=== PATIENT | female | born 1965 | race Caucasian/White ===

== ENCOUNTER 2019-04-30 00:43 | Day surgery (SDC) | payer OTHER, SELFPAY ==
[2019-04-19 15:06] VITALS: BMI 26.9
[2019-04-30 07:34] VITALS: BP 113/75; PULSE 81; RESP 20; TEMP 36.2; O2SAT 98
--- NOTE | 2019-04-30 07:38 | WPDANESEPPF ---
Anes - Initial Pre Proc Eval Procedure: Operation Date: 04/30/19 09:00 Proposed Procedures p Bradford Joe Bunionectomy Left Foot - Latrell Craig DPM Date/Time: 04/30/19 07:38 Surgeon: Latrell Craig DPM Pre Op Diagnosis: Hallux Rigidus Left Foot Patient Data Age: 53 Gender: F Height: 5 ft 4 in Weight: 71.21 kg Allergies Allergy/AdvReac Type Severity Reaction Status Date / Time sulfamethizole Allergy Unknown Rash Verified 04/19/19 15:07 trimethoprim Allergy Unknown Rash Verified 04/19/19 15:07 Home Medications Medication Instructions Recorded Confirmed Type L.acid-L.casei-B.bif-B.lyric-FOS 1 cap PO DAILY 04/19/19 04/19/19 History [Probiotic Blend] Curtis Burn 1 tablet PO DAILY 04/19/19 History biotin 1,000 mcg PO DAILY 04/19/19 04/19/19 History multivitamin 1 tablet PO DAILY 04/19/19 04/19/19 History Patient hx anesthesia problems: post op nausea/vomiting Family hx anesthesia problems: none PMFSH Past Medical History Medical History Arthritis Family History Family History Other Diabetes mellitus Family history of arthritis Family history of malignant neoplasm Hypertension Social History Social History Smoking status: Never smoker Anes - Eval Final PreProcedure Day of Procedure 04/30/19 07:38 Patient weight: overweight Heart: regular rate and rhythm Lungs: clear to auscultation Airway: Mallampati scale class II Neurological: alert and oriented Last oral intake: >/= 8 hours ASA classification: II Emergent: no Anesthetic plan: proceed Anesthesia type and monitoring: general LMA and standard monitoring Informed Consent: The patient's anesthetic plan and its attendant risks and benefits were discussed with the patient/family/POA. Questions were solicited and answers provided to the satisfaction of the patient/family/POA.
[2019-04-30] MEDS: LACTATED RINGERS 1,000 ML 30 ML IV CONT (08:10)
--- NOTE | 2019-04-30 09:00 | PM.IMHP ---
H&P: HPI History of Present Illness Chief complaint: Hallux Rigidus Left Foot Narrative: Shelbie Contreras is a 53 year old female presenting with pain in the left great toe that is unresponsive to conservative care PMFSH Past Medical History Medical History Arthritis Family History Family History Other Diabetes mellitus Family history of arthritis Family history of malignant neoplasm Hypertension Social History Social History Smoking status: Never smoker Meds Home Medications and Allergies Home Medications Medication Instructions Recorded Confirmed Type L.acid-L.casei-B.bif-B.lyric-FOS 1 cap PO DAILY 04/19/19 04/30/19 History [Probiotic Blend] Curtis Burn 1 tablet PO DAILY 04/19/19 04/30/19 History biotin 1,000 mcg PO DAILY 04/19/19 04/30/19 History multivitamin 1 tablet PO DAILY 04/19/19 04/30/19 History Allergies Allergy/AdvReac Type Severity Reaction Status Date / Time sulfamethizole Allergy Unknown Rash Verified 04/30/19 08:56 trimethoprim Allergy Unknown Rash Verified 04/30/19 08:56 Assessment and Plan Assessment and plan (1) Hallux limitus of left foot: Code(s): M20.5X2 - Other deformities of toe(s) (acquired), left foot Status: Acute Assessment and Plan: Bradford bunionectomy with 1st MPJ implant left foot
[2019-04-30] MEDS: SCOPOLAMINE 1.5 MG PATCH TRANSDERM (09:05)
[2019-04-30] MEDS: ceFAZolin 2 GM/D5W 50 ML 2 GM/50 ML BAG IVPB (09:18)
--- NOTE | 2019-04-30 10:09 | PM.OP ---
Procedure Note - Brief Procedure Note - Brief Date of procedure: 04/30/19 Pre-op diagnosis: Hallux Rigidus Left Foot Post-op diagnosis: same Anesthesia: MAC Surgeon: Latrell Craig DPM Spanish Interpreter: None Estimated blood loss (mL): 5 Drains: No Packing: No Pathology: none sent Complications: No immediate complications Condition: stable Disposition: PACU
--- NOTE | 2019-04-30 10:09 | PM.PROC ---
Procedure Note - Detailed Date of procedure: 04/30/19 Pre-op diagnosis: Hallux Rigidus Left Foot Post-op diagnosis: same Implants: Futura Primus great toe implant Anesthesia: MAC Surgeon: Latrell Craig DPM Loss Prevention Manager: None Estimated blood loss (mL): 1 Drains: No Packing: No Pathology: none sent Complications: No immediate complications Condition: stable Disposition: PACU Findings: Under monitored sedation patient was brought into the operating room, placed on the operating table in a supine position. Following IV sedation local anesthesia was obtained using 2% Lidocaine plain and 0.5% Marcaine plain. The foot was then scrubbed, prepped and draped in the usual aseptic manner. Esmark bandage used to exsanguinate the patient?s leflt foot and the ankle tourniquet was inflated to 250mm. Attention was then directed to the 1st digit where a linear incision made dorsal to the dorsal aspect of the toe. It was deepened down to the level of the MPJ. The incision was deepened down to the level of the 1st MPJ. The head of the metatarsal and the base of the proximal phalanx was resected. The appropriate sized implant was found and put in place using the instrumentation provided by the company. It was noted to sit in a good position. At this point, the toe was evaluated and noted to be straight position. The wound was flushed with copious amounts of sterile saline. The wound was closed with 3-0 vicryl and the skin was repaired using 5-0 vicryl. Patient tolerated procedure and anesthesia well. She was transferred to the recovery room with vital signs stable and neurovascular status intact to all digits of the left foot. Following a period of post-operative monitoring the patient will be discharged home with written and oral post-operative instructions.
[2019-04-30 10:11] VITALS: BP 97/64; PULSE 77; RESP 16
[2019-04-30 10:31] VITALS: BP 115/66; PULSE 72; RESP 14
[2019-04-30] MEDS: ONDANSETRON INJ 4 MG/2 ML VIAL IV PUSH (10:52)
[2019-04-30 11:01] VITALS: BP 109/67; PULSE 70; RESP 14
== END 2019-04-30 11:10 | disposition home or self-care (01) ==
PROVIDERS: PCP Internal Medicine; Visit Provider Podiatrist Foot & Ankle Surgery
PROC: (CPT 28299; principal; 2019-04-30 09:00)
DX: M20.22 Hallux rigidus, left foot (principal); M19.90 Unspecified osteoarthritis, unspecified site
CPT/HCPCS: 28291; A9270; C1776; J0690; J1100; J2250; J2405; J2704; J3010; J7120

== ENCOUNTER 2019-06-16 01:49 | Day surgery (SDC) | payer BC, SELFPAY ==
[2019-06-15 10:10] VITALS: BMI 27.1
[2019-06-16 08:55] VITALS: BP 113/78; PULSE 85; RESP 16; TEMP 37.2; O2SAT 98; BMI 27.3
[2019-06-16] MEDS: LACTATED RINGERS 1,000 ML 150 ML IV CONT (09:16)
--- NOTE | 2019-06-16 09:35 | WPDGICN ---
Assessment and Plan Additional Plan This is a 53-year-old white female patient seen in evaluation at the request of Dr. Paulson. Patient complains of food catching in the mid chest on swallowing. This happens more with solids compared to liquids. It occurs intermittently. Symptoms have been present for at least 1 year. She denies any associated heartburn. She denies bleeding. She denies weight loss. Past medical history noncontributory. Current medications include vitamins and probiotics per family history is noncontributory. physical exam reveals her to be alert. Vital signs stable. HEENT exam unremarkable. Lungs are clear to auscultation and percussion. Heart is without murmur or extra sounds. Abdominal exam bowel sounds are present soft nontender with no hepatosplenomegaly. Digital external rectal Exam is deferred. Impression 1. Dysphagia, suspicious for esophageal narrowing. Plan is for EGD to assess evaluate more thoroughly. GI Consult Note Consult date/time: 06/16/19 09:35 HPI: Shelbie Contreras is a 53 year old female [facility] Social History Social History Smoking status: Never smoker Meds Home Medications and Allergies Home Medications Medication Instructions Recorded Confirmed Type L.acid-L.casei-B.bif-B.lyric-FOS 1 cap PO DAILY 04/19/19 06/15/19 History [Probiotic Blend] biotin 1,000 mcg PO DAILY 04/19/19 06/15/19 History multivitamin 1 tablet PO DAILY 04/19/19 06/15/19 History Allergies Allergy/AdvReac Type Severity Reaction Status Date / Time sulfamethizole Allergy Unknown Rash Verified 06/16/19 08:54 trimethoprim Allergy Unknown Rash Verified 06/16/19 08:54 Vital Signs Vital Signs - 24 hr 06/16/19 08:55 Temperature 37.2 C Pulse Rate 85 Respiratory Rate 16 Blood Pressure 113/78 Pulse Oximetry 98
--- NOTE | 2019-06-16 09:44 | WPDANESEPPF ---
Anes - Initial Pre Proc Eval Procedure: Operation Date: 06/16/19 10:00 Proposed Procedures p Esophagogastroduodenoscopy - Mike Cedeño MD Date/Time: 06/16/19 09:44 Surgeon: Mike Cedeño MD Pre Op Diagnosis: dysphagia Patient Data Age: 53 Gender: F Height: 5 ft 5 in Weight: 74.5 kg Last Vital Signs Temp 98.9 F 06/16/19 08:55 Pulse 85 06/16/19 08:55 Resp 16 06/16/19 08:55 BP 113/78 06/16/19 08:55 Pulse Ox 98 06/16/19 08:55 Allergies Allergy/AdvReac Type Severity Reaction Status Date / Time sulfamethizole Allergy Unknown Rash Verified 06/16/19 08:54 trimethoprim Allergy Unknown Rash Verified 06/16/19 08:54 Home Medications Medication Instructions Recorded Confirmed Type L.acid-L.casei-B.bif-B.lyric-FOS 1 cap PO DAILY 04/19/19 06/15/19 History [Probiotic Blend] biotin 1,000 mcg PO DAILY 04/19/19 06/15/19 History multivitamin 1 tablet PO DAILY 04/19/19 06/15/19 History Patient hx anesthesia problems: none Family hx anesthesia problems: none PMFSH Social History Social History Smoking status: Never smoker Anes - Eval Final PreProcedure Day of Procedure 06/16/19 09:44 Patient weight: normal Heart: regular rate and rhythm Lungs: clear to auscultation Airway: Mallampati scale class II Neurological: alert and oriented Last oral intake: >/= 8 hours ASA classification: II Emergent: no Anesthetic plan: proceed Anesthesia type and monitoring: general GIVS and standard monitoring Informed Consent: The patient's anesthetic plan and its attendant risks and benefits were discussed with the patient/family/POA. Questions were solicited and answers provided to the satisfaction of the patient/family/POA.
[2019-06-16] MEDS: BENZOCAINE (*SP) 60 ML SPRAY CAN (HURRICAINE) 1 SPRAY MUCOUS MEM (10:05)
[2019-06-16 10:25] VITALS: BP 106/71; PULSE 67; RESP 14; O2SAT 98
[2019-06-16 10:35] VITALS: BP 113/75; PULSE 66; RESP 14; O2SAT 99
== END 2019-06-16 11:00 | disposition home or self-care (01) ==
PROVIDERS: PCP Internal Medicine; Visit Provider Internal Medicine Gastroenterology
PROC: 0DJ08ZZ Inspection of Upper Intestinal Tract, Via Natural or Artificial Opening Endoscopic (ICD-10-PCS; CPT 43235; principal; 2019-06-16 10:00)
DX: R13.10 Dysphagia, unspecified (principal)
CPT/HCPCS: 43235; 43450; J2704; J7120

== ENCOUNTER 2019-08-25 12:58 | Outpatient (CLI) | payer BC, SELFPAY ==
--- NOTE | ~2019-08-25 | XR_ITS ---
EXAMINATION: XR lg joint inject/asp w image DATE: 08/25/2019 13:42 INDICATION: Frozen left shoulder. Left shoulder pain. TECHNIQUE: A time-out was performed to verify the patient's name, date of , and procedure to b e performed. The procedure including the risks, benefits, and alternatives was discussed with the pat ient. Risks discussed included bleeding and infection. The patient understood the risks and agreed to proceed. The skin overlying the left glenohumeral joint was prepped and draped in usual sterile fas hion. Anesthetic was administered with 1% lidocaine subcutaneously. A 22 G needle was advanced unde r fluoroscopic guidance into the joint. Injection of 1 mL of Omnipaque 240 confirmed intra-articular position of the needle. Subsequently, injectate consisting of 4 mL 1% lidocaine and 1 mL 80 mg/mL D epo-Medrol was instilled. The needle was removed and the entry site was cleaned and dressed. There were no immediate complications. Fluoroscopy exposure time was 0.1 minutes. The total number of image s was 2. FINDINGS: Real-time fluoroscopy demonstrates the needle in the left glenohumeral joint. Patient's julio n prior to procedure:1/10. Patient's pain following the procedure: 0/10. IMPRESSION: 1. Left glenohumeral joint injection of local anesthetic and steroid with decrease in the patient's p resenting pain. Reviewed, dictated and finalized at location A. IMPRESSION: 1. Left glenohumeral joint injection of local anesthetic and steroid with decre ase in the patient's presenting pain.
== END 2019-08-25 12:59 | disposition home or self-care (01) ==
PROVIDERS: PCP Internal Medicine; Visit Provider Orthopaedic Surgery
DX: M75.02 Adhesive capsulitis of left shoulder (principal)
CPT/HCPCS: 20610; 77002; J1040; Q9966

== ENCOUNTER 2020-05-24 14:12 | Outpatient (CLI) | payer BC, SELFPAY ==
--- NOTE | ~2020-05-24 | MM_ITS ---
EXAMINATION: MM screening [facility] BI w michael HISTORY: Screening mammogram TECHNIQUE: Craniocaudal and mediolateral oblique 3-D tomosynthesis images were obtained and synthetic 2-D images were generated. CAD analysis was submitted and interpreted. COMPARISON: 11/12/2017, 08/16/2015, 02/08/2014 BREAST PARENCHYMAL COMPOSITION: There are scattered areas of fibroglandular density. FINDINGS: RIGHT BREAST: There is no evidence of suspicious mass, calcification, or architectural distortion to suggest malignancy. There has been no significant interval change. LEFT BREAST: There is a possible mass in the posterior third of the upper inner breast. IMPRESSION: 1. Possible left breast mass. 2. Additional mammographic views and possible breast ultrasound are recommended. BI-RADS Category 0: Incomplete: Needs additional imaging evaluation. Reviewed, dictated and finalized at location A. NING AND DEVELOPMENT MANAGER IMPRESSION: 1. Possible left breast mass. 2. Additional mammographic views and possible breast ultrasound are recommended . BI-RADS Category 0: Incomplete: Needs additional imaging evaluation.
== END 2020-05-24 14:13 | disposition home or self-care (01) ==
LOC: ANHIMG 14:14
PROVIDERS: PCP Internal Medicine; Visit Provider Nurse Practitioner Women's Health
DX: Z12.31 Encounter for screening mammogram for malignant neoplasm of breast (principal); R92.8 Other abnormal and inconclusive findings on diagnostic imaging of breast
CPT/HCPCS: 77063; 77067

== ENCOUNTER → 2020-06-01 07:48 | Outpatient (CLI) | payer BC, SELFPAY ==
--- NOTE | ~2020-06-01 | MMUS_ITS ---
EXAMINATION: MM diagnostic mammo unilat LT, US breast LT complete HISTORY: Follow-up left breast mass TECHNIQUE: Additional 3-D tomosynthesis images of the left breast were performed and synthetic 2-D im ages were generated. CAD analysis was submitted and interpreted. High resolution complete left breast ultrasound was performed. COMPARISON: Comparison to multiple prior studies sequentially, with oldest reviewed study dated 05/15. BREAST PARENCHYMAL COMPOSITION: Breast composed of scattered areas of fibroglandular density. FINDINGS: MAMMOGRAPHIC FINDINGS: There is a mass in the upper central aspect of the left breast posteriorly measuring approximately 7 mm. There are no suspicious calcifications or architectural distortion. ULTRASOUND: Complete left breast ultrasound: At 11:00, 5 cm from the nipple, there is a 9 x 6 x 3 mm cyst corresp onding to the mammographic finding. No suspicious masses are identified. IMPRESSION: 1. No evidence for malignancy in the left breast. Benign findings. 2. Routine yearly screening mammogram and regular clinical breast examination are recommended. BI-RADS Category 2: Benign finding(s). Reviewed, dictated and finalized at location A. RANCE EXAMINING CLERK IMPRESSION: 1. No evidence for malignancy in the left breast. Benign findings. 2. Routine yearly screening mammogram and regular clinical breast examination a re recommended. BI-RADS Category 2: Benign finding(s).
== END ==
PROVIDERS: Visit Provider Nurse Practitioner Women's Health
DX: R92.8 Other abnormal and inconclusive findings on diagnostic imaging of breast (principal)
CPT/HCPCS: 76641; 77065

== ENCOUNTER 2021-07-13 04:21 | Day surgery (SDC) | payer OTHER, SELFPAY ==
[2021-07-06 09:24] VITALS: BMI 26.8
[2021-07-13 09:42] VITALS: BP 98/75; PULSE 92; RESP 20; TEMP 36.8; O2SAT 100
--- NOTE | 2021-07-13 09:53 | P.PNAN_ITS ---
Anes - Initial Pre Proc Eval Procedure: Operation Date: 07/13/21 10:45 Proposed Procedures p Esophagogastroduodenoscopy - Mike Cedeño MD Date/Time: 07/13/21 09:53 Surgeon: Mike Cedeño MD Pre Op Diagnosis: dysphagia Patient Data Age: 56 Gender: F Height: 1.64 m Weight: 72.3 kg Last Vital Signs Temp 36.8 C 07/13/21 09:42 Pulse 92 07/13/21 09:42 Resp 20 07/13/21 09:42 BP 98/75 L 07/13/21 09:42 Pulse Ox 100 07/13/21 09:42 Allergies Allergy/AdvReac Type Severity Reaction Status Date / Time sulfamethizole Allergy Unknown Rash Verified 07/13/21 09:41 trimethoprim Allergy Unknown Rash Verified 07/13/21 09:41 Home Medications Medication Instructions Recorded Confirmed Type L.acid-L.casei-B.bif-B.lyric-FOS 1 cap PO DAILY 04/19/19 07/06/21 History [Probiotic Blend] biotin 1,000 mcg PO DAILY 04/19/19 07/06/21 History calcium carbonate 600 mg-vitamin 1 cap PO DAILY 06/28/21 07/06/21 History D3 10 mcg (400 unit) capsule dextroamphetamine-amphetamine 5 mg 5 mg PO BID 06/28/21 07/06/21 History tablet multivitamin 2 tablet PO DAILY tablet 06/28/21 07/06/21 History omeprazole 20 mg PO DAILY 07/06/21 07/06/21 History Patient hx anesthesia problems: none Family hx anesthesia problems: none Results Review: All pre-operative results and documents have been reviewed as part of the pre-operative evaluation. [facility] Past Medical History Medical History (Updated 07/13/21 @ 09:53 by Bhanu Farias MD) Arthritis Dysphagia Overweight Surgical History Surgical History (Updated 07/13/21 @ 09:53 by Bhanu Farias MD) History of esophagogastroduodenoscopy (EGD) Family History Family History Other Diabetes mellitus Family history of arthritis Family history of malignant neoplasm Hypertension Social History Social History Smoking status: Never smoker Alcohol intake: never Substance use type: does not use Living arrangements: with family Spiritual care concerns: No Anes - Eval Final PreProcedure Day of Procedure 07/13/21 09:53 Patient weight: overweight Heart: regular rate and rhythm Lungs: clear to auscultation Airway: Mallampati scale class II Neurological: alert and oriented Last oral intake: >/= 8 hours ASA classification: II Emergent: no Anesthetic plan: proceed Anesthesia type and monitoring: general GIVS and standard monitoring Results Review: All pre-operative results and documents have been reviewed as p art of the pre-operative evaluation. Informed Consent: The patient's anesthetic plan and its attendant risks and benefits were discussed with the patient/family/POA. Questions were solicited and answers provided to the satisfaction of the patient/family/POA.
[2021-07-13] MEDS: LACTATED RINGERS 1,000 ML 150 ML IV CONT (09:58)
--- NOTE | 2021-07-13 10:09 | WPDGICN ---
Assessment and Plan Assessment and plan (1) Dysphagia: Code(s): R13.10 - Dysphagia, unspecified Status: Acute Assessment and Plan: Patient reports that food will catch in the mid substernal portion of the chest after eating. She has a history of improvement with empiric dilatation several years ago. Plan is for follow-up EGD to exclude esophageal narrowing and for possible additional dilatation. Further recommendations will be given after endoscopy. GI Consult Note Consult date/time: 07/13/21 10:09 HPI: Shelbie Contreras is a 56 year old female Presents for EGD. Patient complains of difficulty swallowing. She states with eating almost any type of foods she sometimes will have to stop she is unable to say a continue swallowing fluids or liquids. She feels as though she may choke. She states this will eventually improve after about an hour. She often times will feel a sensation of something stuck in her throat otherwise. Patient denies any weight loss or bleeding. She does report an EGD 2 years ago that was unremarkable. She had significant improvement after empiric dilatation until just recently. Patient presents today for follow-up EGD. Because of complaints of dysphagia. Review of Systems Review of Systems: All systems reviewed & are unremarkable except as noted in HPI and below PMFSH Past Medical History Medical History (Updated 07/13/21 @ 09:53 by Bhanu Farias MD) Arthritis Dysphagia Overweight Surgical History Surgical History (Updated 07/13/21 @ 09:53 by Bhanu Farias MD) History of esophagogastroduodenoscopy (EGD) Family History Family History Other Diabetes mellitus Family history of arthritis Family history of malignant neoplasm Hypertension Social History Social History Smoking status: Never smoker Alcohol intake: never Substance use type: does not use Living arrangements: with family Spiritual care concerns: No Meds Home Medications and Allergies Home Medications Medication Instructions Recorded Confirmed Type L.acid-L.casei-B.bif-B.lyric-FOS 1 cap PO DAILY 04/19/19 07/06/21 History [Probiotic Blend] biotin 1,000 mcg PO DAILY 04/19/19 07/06/21 History calcium carbonate 600 mg-vitamin 1 cap PO DAILY 06/28/21 07/06/21 History D3 10 mcg (400 unit) capsule dextroamphetamine-amphetamine 5 mg 5 mg PO BID 06/28/21 07/06/21 History tablet multivitamin 2 tablet PO DAILY tablet 06/28/21 07/06/21 History omeprazole 20 mg PO DAILY 07/06/21 07/06/21 History Allergies Allergy/AdvReac Type Severity Reaction Status Date / Time sulfamethizole Allergy Unknown Rash Verified 07/13/21 09:41 trimethoprim Allergy Unknown Rash Verified 07/13/21 09:41 Vital Signs Vital Signs - 24 hr 07/13/21 09:42 Temperature 98.2 F Pulse Rate 92 Respiratory Rate 20 Blood Pressure 98/75 L Pulse Oximetry 100 Exam Narrative: Physical exam reveals patient to be alert. Vital signs stable. HEENT exam is unremarkable. Patient is anicteric. Lungs are clear to auscultation and percussion. Heart is without murmur or extra sounds. Abdominal exam bowel sounds are present soft nontender with no hepatosplenomegaly. Digital external rectal exam is normal.
[2021-07-13] MEDS: BENZOCAINE (*SP) 60 ML SPRAY CAN (HURRICAINE) 1 SPRAY MUCOUS MEM (10:56)
[2021-07-13 11:06] VITALS: BP 96/65; PULSE 91; RESP 19; O2SAT 100
[2021-07-13 11:16] VITALS: BP 106/71; PULSE 84; RESP 20; O2SAT 100
[2021-07-13 11:26] VITALS: BP 105/63; PULSE 78; RESP 24; O2SAT 100
== END 2021-07-13 11:30 | disposition home or self-care (01) ==
PROVIDERS: PCP Internal Medicine; Visit Provider Internal Medicine Gastroenterology
PROC: 0DJ08ZZ Inspection of Upper Intestinal Tract, Via Natural or Artificial Opening Endoscopic (ICD-10-PCS; CPT 43235; principal; 2021-07-13 10:45)
DX: R13.10 Dysphagia, unspecified (principal)
CPT/HCPCS: 43450; 43235; J2001; J2704; J7120

== ENCOUNTER 2022-07-04 08:01 | Outpatient (CLI) | payer OTHER, SELFPAY ==
--- NOTE | ~2022-07-04 | XR_ITS ---
EXAMINATION: XR sacrum coccyx min 2V INDICATION: Sacral pain TECHNIQUE: Three views of the sacrum and coccyx are obtained. COMPARISON: None available FINDINGS: There is mild cortical irregularity of the coccyx on the lateral view which could reflect h ealed or healing fracture. No acute fracture is identified. There are moderate lower lumbar spondylos is. Phleboliths are noted in the pelvis. There is mild osteoarthritis of the hips. IMPRESSION: 1. Possible healed or healing fracture of the coccyx. Reviewed, dictated and finalized at location L.
== END 2022-07-04 08:02 | disposition home or self-care (01) ==
PROVIDERS: PCP Internal Medicine; Visit Provider Nurse Practitioner Family
DX: M53.3 Sacrococcygeal disorders, not elsewhere classified (principal)
CPT/HCPCS: 72220

== ENCOUNTER 2022-07-05 00:24 | Day surgery (SDC) | payer OTHER, SELFPAY ==
[2022-06-21 13:30] VITALS: BMI 26.8
[2022-07-05 08:06] VITALS: BP 115/74; PULSE 84; RESP 20; TEMP 36.4; O2SAT 99; BMI 26.4
[2022-07-05] MEDS: LACTATED RINGERS 1,000 ML 150 ML IV CONT (08:16)
--- NOTE | 2022-07-05 08:25 | WPDHPUPDATE1 ---
History and Physical Update Update Date/Time: 07/05/22 08:25 History and Physical has been reviewed, including an updated exam of the patient. There are NO changes in the patient's condition. Risks, benefits, and alternatives have been discussed and questions answered. Patient agrees to proceed with procedure.
--- NOTE | 2022-07-05 08:53 | P.PNAN_ITS ---
Anes - Initial Pre Proc Eval Procedure: Operation Date: 07/05/22 09:15 Proposed Procedures p Colonoscopy - Mike Cedeño MD Date/Time: 07/05/22 08:53 Surgeon: Mike Cedeño MD Pre Op Diagnosis: rectal pain, constipation Patient Data Age: 57 Gender: F Height: 1.65 m Weight: 72 kg Last Vital Signs Temp 97.5 F L 07/05/22 08:06 Pulse 84 07/05/22 08:06 Resp 20 07/05/22 08:06 BP 115/74 07/05/22 08:06 Pulse Ox 99 07/05/22 08:06 O2 Del Method Room Air 07/05/22 08:06 Allergies Allergy/AdvReac Type Severity Reaction Status Date / Time sulfamethizole Allergy Intermediate Rash Verified 07/05/22 08:04 trimethoprim Allergy Intermediate Rash Verified 07/05/22 08:04 Home Medications Medication Instructions Recorded Confirmed Type biotin 1,000 mcg chewable tablet 1,000 mcg PO DAILY 04/19/19 06/21/22 History calcium carbonate 600 mg-vitamin 2 cap PO DAILY 06/28/21 06/21/22 History D3 10 mcg (400 unit) capsule dextroamphetamine-amphetamine 5 mg 5 mg PO BID 06/28/21 06/21/22 History tablet (Adderall) multivitamin 2 tablet PO DAILY 06/28/21 06/21/22 History omeprazole 40 mg capsule,delayed 40 mg PO DAILY 1 month #30 caps 06/12/22 06/21/22 Rx release plecanatide 3 mg tablet (Trulance) 3 mg PO DAILY 1 month #30 tabs 06/24/22 07/05/22 Rx Patient hx anesthesia problems: none Family hx anesthesia problems: none Results Review: All pre-operative results and documents have been reviewed as part of the pre- operative evaluation. [facility] Past Medical History Medical History (Updated 06/12/22 @ 09:16 by FAVIAN Larios) Arthritis Dysphagia Encounter for screening colonoscopy Hypertension Overweight Sacral pain Surgical History Surgical History History of esophagogastroduodenoscopy (EGD) Family History Family History Other Diabetes mellitus Family history of arthritis Family history of malignant neoplasm Hypertension Social History Social History Smoking status: Never smoker Alcohol intake: current Substance use: never Substance use type: does not use Living arrangements: with family Spiritual care concerns: No Anes - Eval Final PreProcedure Day of Procedure 07/05/22 08:53 Patient weight: normal Heart: regular rate and rhythm Lungs: clear to auscultation Airway: Mallampati scale class II Neurological: alert and oriented Last oral intake: >/= 8 hours ASA classification: II Emergent: no Anesthetic plan: proceed Anesthesia type and monitoring: general GIVS and standard monitoring Results Review: All pre-operative results and documents have been reviewed as part of the pre- operative evaluation. Informed Consent: The patient's anesthetic plan and its attendant risks and benefits were discussed with the patient/family/POA. Questions were solicited and answers provided to the satisfaction of the patient/family/POA.
[2022-07-05 09:08] VITALS: BP 115/72; PULSE 78; RESP 20; O2SAT 100
[2022-07-05 09:48] VITALS: BP 109/71; PULSE 77; RESP 21; O2SAT 98
[2022-07-05 09:58] VITALS: BP 109/68; PULSE 80; RESP 20; O2SAT 100
== END 2022-07-05 10:18 | disposition home or self-care (01) ==
PROVIDERS: PCP Internal Medicine; Visit Provider Internal Medicine Gastroenterology
PROC: 0DJD8ZZ Inspection of Lower Intestinal Tract, Via Natural or Artificial Opening Endoscopic (ICD-10-PCS; CPT 45378; principal; 2022-07-05 09:15)
DX: Z12.11 Encounter for screening for malignant neoplasm of colon (principal); K64.8 Other hemorrhoids; K59.00 Constipation, unspecified; I10 Essential (primary) hypertension
CPT/HCPCS: 45378; J2704; J7120

== ENCOUNTER 2023-03-23 10:16 | Emergency (ER) | payer OTHER, SELFPAY ==
--- NOTE | ~2023-03-23 | XR_ITS ---
XR chest 2V DATE: 03/23/2023 12:07 INDICATION: Productive cough, shortness of breath TECHNIQUE: 2 views COMPARISON: None FINDINGS: Normal heart size. No hilar or mediastinal enlargement. No pulmonary infiltrate or consolid ation, pleural effusion or pulmonary vascular congestion or pneumothorax. Mild thoracic scoliosis. IMPRESSION: No active cardiopulmonary disease Reviewed, dictated and finalized at location [facility]
--- NOTE | 2023-03-23 11:25 | ED.URI ---
HPI - URI/Sore Throat General Chief Complaint: Upper Respiratory Infection Stated Complaint: cough Time Seen by Provider: 03/23/23 11:55 Source: patient Mode of arrival: ambulatory Limitations: no limitations History of Present Illness HPI Narrative: Shelbie is a 57-year-old female patient presenting to the clinic today with complaints of a productive cough with yellow/white phlegm, nasal congestion, postnasal drip, mild shortness of breath x1 week. States she has been having some wheezing as well. MD elicited complaint: sore throat and nasal congestion Related Data Home Medications Medication Instructions Recorded Confirmed dextroamphetamine-amphetamine 5 mg 5 mg PO BID 06/28/21 07/25/22 tablet (Adderall) multivitamin 2 tablet PO DAILY 06/28/21 07/25/22 Allergies Allergy/AdvReac Type Severity Reaction Status Date / Time sulfamethizole Allergy Intermediate Rash Verified 03/23/23 11:55 trimethoprim Allergy Intermediate Rash Verified 03/23/23 11:55 Review of Systems Review of Systems: Pertinent positives per HPI. Patient denies any fever, chills, rash, headache, visual changes, dizziness, chest pain, palpitations, nausea, vomiting, diarrhea, constipation, abdominal pain, or any urinary issues. PMFSH Past Medical History Medical History Arthritis Dysphagia Encounter for screening colonoscopy Fractured coccyx Hypertension Overweight Sacral pain Surgical History Surgical History History of esophagogastroduodenoscopy (EGD) Family History Family History Other Diabetes mellitus Family history of arthritis Family history of malignant neoplasm Hypertension Social History Social History Smoking status: Never smoker Alcohol intake: current Substance use: never Substance use type: does not use Living arrangements: with family Spiritual care concerns: No Comments At the time of my signature, I reviewed and agree with the nursing past medical, surgical, social, and family history. There is no relevant family history pertinent to the patient complaint. Exam Narrative: General: Well-developed, well nourished, in no apparent distress Head: Normocephalic, atraumatic Eyes: Pupils equally round and reactive to light bilaterally, EOM intact, sclera and conjunctive clear, no discharge, lids normal Ears: TMs intact and clear, ear canals clear, no drainage, grossly hearing normal. Nose: Nares patent, clear nasal discharge, no inflammation, no sinus tenderness. Mouth: Oral pharynx without lesions or masses, good dentition, MMM. Postnasal drip Neck: Supple, trachea midline, no enlargement of anterior or posterior cervical nodes, no thyroid masses or goiter palpable. Cardio: Regular rate and rhythm, s1 and s2 normal, no murmur appreciated. Resp: Clear to auscultation bilaterally, no rhonchi, rales, wheezing or rubs Course Course Emergency Course: Portions of this record may have been created with voice recognition software. Level of Care: Express Care Visit Vital Signs Vital signs: Vital signs reviewed MDM - URI/Sore Throat MDM Narrative Medical decision making narrative: At the time of visit patient is resting comfortably on the exam table. Patient appears to be nontoxic. Chest x-rays negative for any sign of pneumonia. I suspect patient has URI/bronchitis. Prescription for albuterol inhaler and prednisone was sent to the pharmacy. Supportive measures were discussed with the patient and they voiced understanding discharge instructions and agrees to treatment plan. Return precautions reviewed Differential Diagnosis Differential diagnosis: Likely upper respiratory infection, otitis media, sinusitis, viral infection, bronchitis, influenza, pharyngi
[2023-03-23 11:31] VITALS: BP 128/79; PULSE 74; RESP 18; TEMP 36.6; O2SAT 97
== END 2023-03-23 12:25 | disposition home or self-care (01) ==
PROVIDERS: Emergency Provider Nurse Practitioner Family
DX: J40 Bronchitis, not specified as acute or chronic (principal); J06.9 Acute upper respiratory infection, unspecified; I10 Essential (primary) hypertension
CPT/HCPCS: 71046; 99213; G0463

== ENCOUNTER 2024-05-13 18:00 | Emergency (ER) | payer OTHER, SELFPAY ==
--- NOTE | ~2024-05-13 | XR_ITS ---
CHEST RADIOGRAPH, PA AND LATERAL CLINICAL HISTORY: cough/sob/rhonci/wheeze-inf A pos. . COMPARISON: 03/23/2023 TECHNIQUE: PA and lateral views of the chest. FINDINGS The cardiomediastinal silhouette is unremarkable. The lungs are clear. Visualized osseous structures and soft tissues are unremarkable. IMPRESSION: No focal infiltrate or effusion. Reviewed, dictated and finalized at location A. E FURNACE TENDER
--- NOTE | 2024-05-13 18:01 | ED.URI ---
HPI - URI/Sore Throat General Chief Complaint: Upper Respiratory Infection Stated Complaint: cough Time Seen by Provider: 05/13/24 18:01 Source: patient Mode of arrival: ambulatory Limitations: no limitations History of Present Illness HPI Narrative: Shelbie is a 58 year old female patient presenting to the clinic today with c/o a cough, chest congestion, shortness of breath. She reports symptoms started on Friday. Went to an urgent care on Friday and tested positive for influenza A. They prescribed her Tessalon Perles, albuterol inhaler, Tamiflu, and a nasal spray. She reports her cough has gotten worse and she is more short of breath. She is a nonsmoker. Coughing up some dark brown phlegm. Denies any chest pain. Denies any fever currently. MD elicited complaint: cough, nasal congestion and other (Shortness of breath) Related Data Home Medications ?Medication ?Instructions ?Recorded ?Confirmed ?Last Taken ?Type dextroamphetamine-amphetamine 5 mg 5 mg PO BID 06/28/21 07/25/22 07/04/22 History tablet (Adderall) multivitamin 2 tablet PO DAILY 06/28/21 07/25/22 07/04/22 History benzonatate 100 mg capsule mg PO 05/13/24 Unknown History Allergies Allergy/AdvReac Type Severity Reaction Status Date / Time sulfamethizole Allergy Intermediate Rash Verified 05/13/24 18:08 trimethoprim Allergy Intermediate Rash Verified 05/13/24 18:08 Review of Systems Review of Systems: Pertinent positives per HPI. Patient denies any fever, chills, rash, headache, visual changes, dizziness, chest pain, palpitations, nausea, vomiting, diarrhea, constipation, abdominal pain, or any urinary issues. [facility] Past Medical History Medical History Arthritis Dysphagia Encounter for screening colonoscopy Fractured coccyx Hypertension Overweight Sacral pain Surgical History Surgical History History of esophagogastroduodenoscopy (EGD) Family History Family History Other Diabetes mellitus Family history of arthritis Family history of malignant neoplasm Hypertension Social History Social History (Reviewed 03/23/23 @ 11:55 by SANDY Atwood Smoking status: Never smoker Alcohol intake: current Substance use: never Substance use type: does not use Living arrangements: with family Spiritual care concerns: No Comments At the time of my signature, I reviewed and agree with the nursing past medical, surgical, social, and family history. There is no relevant family history pertinent to the patient complaint. Exam Narrative: General: Well-developed, well nourished, in no apparent distress Head: Normocephalic, atraumatic Eyes: Pupils equally round and reactive to light bilaterally, EOM intact, sclera and conjunctive clear, no discharge, lids normal Ears: TMs intact and clear, ear canals clear, no drainage, grossly hearing normal. Nose: Nares patent, clear nasal discharge, no inflammation, no sinus tenderness. Mouth: Oral pharynx without lesions or masses, good dentition, MMM. Neck: Supple, trachea midline, no enlargement of anterior or posterior cervical nodes, no thyroid masses or goiter palpable. Cardio: Regular rate and rhythm, s1 and s2 normal, no murmur appreciated. Resp: Inspiratory rhonchi with expiratory wheezing, no rales or rubs Course Course Emergency Course: Portions of this record may have been created with voice recognition software. Level of Care: Express Care Visit Vital Signs Vital signs: Vital Signs Temperature 36.5 C 05/13/24 18:08 Pulse Rate 83 05/13/24 18:08 Respiratory Rate 18 05/13/24 18:08 Blood Pressure 114/72 05/13/24 18:08 Pulse Oximetry 98 05/13/24 18:08 Oxygen Delivery Room Air 05/13/24 18:08 Temperature 36.5 C 05/13/24 18:08 Pulse Rate 112 H 05/13/24 18:30 Respiratory Rate 22 H 05/13/24 18:30 Blood Pressure 114/72 05/13/24 18:08 Pulse Oximetry 96 05/13/24 18:30 Oxygen Delivery Room Air 05/13/24 18:08 Vital signs reviewed MDM - URI/Sore Throat MDM Narrative Medical decision making narrative: At the time of visit patient is resting comfortably on the exam table. Patient appears to be nontoxic. Diagnostics: Chest x-ray was performed and shows no sign of pneumonia. Medications: DuoNeb handheld nebulizer treatment was given in the clinic today. This improved patient's lung sounds and made her feel so she can take a deeper breath Plan: I suspect patient has influenza A with bronchitis. Supportive measures were discussed with the patient and they voiced understanding discharge instructions and agrees to treatment plan. Return precautions reviewed Differential Diagnosis Differential diagnosis: Likely upper respiratory infection, otitis media, sinusitis, viral infection, bronchitis, influenza, pharyngitis and other (COVID) Discharge Plan Discharge Clinical Impression: Influenza A, Bronchitis Patient Disposition: Home, Self-Care Condition: Stable Instructions: Antibiotic Form, Influenza (ED), Acute Bronchitis (ED) Additional Instructions: Chest x-rays negative for any acute cardiopulmonary process. Continue current medications as prescribed Take prescription medications only as prescribed-prednisone Increase fluids and stay well hydrated Tylenol/motrin for pain/fever Flonase and OTC antihistamines as directed Vicks vapor rub to open sinuses Sinus rinses for congestion Cepacol spray, cough drops, throat lozenges, warm tea with honey/lemon, gargle salt water to soothe throat BRAT diet for diarrhea Clear liquids x 24 hours then advance as tolerated for nausea/vomiting Go to the ED if you develop a worsening in your condition- high fever not controlled by Tylenol or Motrin, dehydration, weakness, lethargy, shortness of breath, or chest pain. Follow up with your PCP in 3-5 days if symptoms persist. Patient Language: Chinese Prescriptions: New prednisone 20 mg tablet 40 mg PO DAILY 5 Days Qty: 10 0RF No Action benzonatate 100 mg capsule PO albuterol sulfate 90 mcg/actuation HFA aerosol inhaler 2 puff inhalation Q4-6H PRN (Reason: shortness of breath or wheezing) 30 Days Qty: 8.5 0RF omeprazole 40 mg capsule,delayed release(DR/EC) 40 mg PO DAILY 30 Days Qty: 30 11RF dextroamphetamine-amphetamine [Adderall] 5 mg tablet 5 mg PO BID Rx Instructions: administer doses at least 4-6 hours apart multivitamin Tablet 2 tablet PO DAILY Follow-up/Referrals: Anel,Marsha Alvarado, LOBBY CONCIERGE [Primary Care Provider] - Time of Disposition: 18:30 Quality NIHSS Nursing Documentation ED NIHSS nursing documentation: reviewed/agree
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
--- OUTSIDE RECORDS SUMMARY | 2024-05-13 18:03 | XMS_ITS | Encounter Summary ---
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 Historical Provider Final Res ult documented in this encounter Visit Diagnoses Not on filedocumented in this encounter Care Teams Jewelry Sales Associate Relationship Specialty [place] [address] [place] [address] PCP - General Internal Medicine 03/12/18 documented as of this encounter
--- OUTSIDE RECORDS SUMMARY | 2024-05-13 18:03 | XMS_ITS | Encounter Summary ---
Author Organization [facility] Address [address] [place] [address] Care Team Providers Care Camp Guard Name Role Phone BostonCarlosKhanh Solares MD Unavailable [phone] Marsha Tam NP Primary Care Provider [phone] Reason for Visit * Reason Onset Date Comments Medication Problem 05/11/2024 Encounter Details Date Type Department Care Team (Late st Contact Info) Description 05/11/2024 Telephone [facility] Family & Internal Medicine [facility] [address] [place] [address] Mars[place] [id number] [place] [address] [place], [place] [id number] Medication Problem Social History Tobacco Use Types Packs/Day Years Used Date Smoking Tobacco: Never Passive Smoke Exposure: Never Smokeless Tobacco: Never Alcohol Use Standard Drinks/Week Comments Yes 0 (1 standard drink = 0.6 oz pur e alcohol) occasional PHQ-2 Answer Date Recorded Patient Health Questionnaire-2 Score 0 05/11/2024 Comments No Sex and Gender Information Value Date Recorded Sex Assigned at Female 04/15/2024 10:15 AM INSPECTOR REPAIRER SANDSTONE Legal Sex Female 4:19 PM CDT Gender Identity Female 05/14/2021 10:13 AM INSPECTOR REPAIRER SANDSTONE Sexual Orientation Not on file Occupation Industry Job Start Date Job End Date Not on file Not on file Not on file Not on file documented as of this encounter Progress Notes * Kenyetta Solano MA - 05/12/2024 4:35 PM CST Spoke with patient and she was going to continue other meds ECTOR REPAIRER SANDSTONE * Keneytta Solano MA - 05/11/2024 4:08 PM CST Attempted to call patient back but mailbox is full ECTOR REPAIRER SANDSTONE * Jocelin Adams - 05/11/2024 11:00 AM CST Pt was seen this morning by Lana and she forgot to mentioned that she was seen by a [facility] yesterday and was prescribed a nasal spay and an antihistamine (levocetirizine) - she got from [facility] in [place]. She will like to know if she should continue with those in addition with the ones that Lana prescribed today. Please advise ECTOR REPAIRER SANDSTONE documented in this encounter Plan of Treatment Upcoming Encounters Date Type Department Care Team (Late st Contact Info) Description 05/19/2024 4:45 PM INSPECTOR REPAIRER SANDSTONE Appointment [facility] [address] [place] [address] [place] [address] [place] [address] [place] [address] [address] 05/21/2024 4:30 PM INSPECTOR REPAIRER SANDSTONE Appointment [facility] [address] [place] [address] [place] [address] [place] [address] [place] [address] [facility] [address] [address] documented as of this encounter Visit Diagnoses Not on filedocumented in this encounter Additional Health Concerns Infection Onset Date Last Indicated Resolved Time COVID-19 Rule Out 05/11/2024 05/11/2024 05/11/2024 10:37 AM INSPECTOR REPAIRER SANDSTONE Influenza - Seasonal 05/11/2024 05/11/2024 Assessment Noted Time PHQ-9 Depression Total Score: 0 05/20/19 23 11:02 AM INSPECTOR REPAIRER SANDSTONE documented as of this encounter Care Teams Camp Guard Relationship Specialty [place] [address] [facility] [address] [address] PCP - General Nurse Practitioner Family 11/28/23 Khanh Dao MD Obdulia Head Batcher INTERVENTIONAL CARDIOLOGY 10/30/17 documented as of this encounter
--- OUTSIDE RECORDS SUMMARY | 2024-05-13 18:03 | XMS_ITS | Encounter Summary ---
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 Historical Provider Final Res ult documented in this encounter Visit Diagnoses Not on filedocumented in this encounter Care Teams Stonecutter Apprentice Hand Relationship Specialty [place] [address] [place] [address] PCP - General Internal Medicine 03/12/18 documented as of this encounter
--- OUTSIDE RECORDS SUMMARY | 2024-05-13 18:03 | XMS_ITS | Data Portability ---
Author Organization [place] - [facility], [facility] V[facility] Address [address] [place] [address] Care Team Providers Care Ash Kier Boiler Name Role Phone TAD SANCHEZ Orthopedic Surgeon Assessment No assessment recorded. Plan of Treatment Reminders Order Date Submit Date Provider Last Modified By Organization Details Last Modified Time Details Appointments EST 10 2024 09:20A M TAD SANCHEZ MD Not available Not available Not available Lab None recorded. Referral physical therapist referral - left wrist and Shoulder- 2 times a weeks for 3 weeks- Ultrasoun d, phonophor esis, ROM, Active, Passive, active assist, strengthe nahomy 2024 025 [facility], [address] [place], [address], 05/05/2024 14:08:01 Procedures None recorded. Surgeries None recorded. Imaging XR, hand, 3 or more view - Right and left hands [address], [address] [place] [address], [address], 03/18/2024 13:02:29 XR, hand, 3 or more view - Left hand 2023 024 [facility], [address] [place] [address], [address], 03/19/2024 09:42:56 Medication Orders Kenalog 40 mg/mL suspensio n for injection 2024 025 rhanegan Not available 05/03/2024 11:01:28 Medrol (Alexi) 4 mg tablets in a dose pack [address] [facility], [address] [facility] [address] [place] [address], [address], 02/09/2024 09:09:33 Patient TargetsNo targets recorded. Patient InstructionsNo instructions recorded. Reason for Referral Physical Therapist Referral for Pain of left shoulder joint left wrist and Shoulder-2 times a weeks for 3 weeks- Ultrasound, phonophoresis, ROM, Active, Passive, active assist, strengthening Referring Physician: Tad Sanchez, Orthopedic Surgery, Encounter Date: 04/15/2024 Results Created Date Observation Date Name Description Value Unit Range Abnormal Flag Note LastModifiedBy Organization Detail LastModifiedTime 07/18/1907/16/2023 XR, hand, 3 or more view No observ ation record ed. [facility] - Radiology [address] [place], [address], 07/29/2023 10:08:36 02/09/20 24 02/06/2024 sp fluor o [address] [address] [phone] IMAGIN G REPORT Name: SHELBIE CONTRERAS Room #: : 1965 Accoun t #: [id number] Bed #: Age: 58 Years Patien t Type: Outpat ient Order Date/T juan: 2023 03:36: 59 PM Sex: F Access ion#: Exam Descri ption: Exam Reason : [id number] SP FLUORO 1 HOUR lt 1st CMC arthro plasty Dictat ed By: Shaniqua bernal, Jose re Orderi Physic fiona: TAD SANCHEZ Attend ing Physic fiona: TAD SANCHEZ [facility] Physic fiona: UNKNOW N, REFERR ING PHYSIC I CLINIC AL HISTOR Y: lt 1st [facility] arthro plasty COMPAR JEFF: None. TECHNI QUE: 1 spot matrix views acquir ed in the proced ure/op eratin g room. DISCUS JOSIE: Submit xander spot matrix views were acquir ed to docatif nt a orthop edic proced ure. A spot fluoro scopic image was submit xander and is availa ble for the perfor yani physic ians review . Please correl ate with the proced ural/o perati ve findin gs. IMPRES JOSIE: Spot matrix docume ntatio n of proced ure. Fluoro scopy time - [address]- none. Dose- 17.8 mGy. Fluoro scopy was perfor med in the OR/pro cedure room by the surgeo n/supe rvisin g physic fiona. Electr onical ly signed by: Jose Mcgovern rd, MD 2023 05:32 AM CLIENT APPLICATION SUPPORT ENGINEER RP Workst ation: [facility] [address] [facility] [address] [place] [address], [address], 02/09/2024 08:54:12 03/19/20 24 03/18/2024 XR, hand, 3 or more view No observ ation record ed. [address], [address], 03/19/2024 12:15:24 Result Notes None recorded. Problems Name Problem SNOMED Code Status Onset Date Resolution Date Notes Provider Name and Address Organization Details Recorded Time Pain in left thumb 2559669045929 100 Active 2023 Salome soto [facility] 14:26:41 Carpal tunnel syndrome 03242714 Active 2023 Salome soto [facility] 4 15:13:56 Lesion of ulnar nerve 308208089 Active 2023 Salome Gonzalezadolfo null, [facility] 4 15:14:08 Foot joint pain 566983059 Active 2023 Salome Gonzalezadolfo null, [facility] 4 15:14:21 Ankle joint pain 384051791 Active 2023 Salome Gonzalezadolfo null, [facility] 4 15:14:30 Disorder of shoulder 011187369 Active 2023 Salome Carlosadolfo null, [facility] 4 15:14:42 Neck pain 28545806 Active 2023 Salome Gonzalezadolfo null, [facility] 4 15:14:49 Medial epicondylit is 21305185 Active 2023 Salome Cmbrian null, [facility] 4 15:15:14 Lateral epicondylit is 600731824 Active 2023 Salome Gonzalezadolfo null, [facility] 4 15:15:23 Tibialis tendinitis 98371051 Active 2023 Salome Gonzalezadolfo null, [facility] 4 15:15:57 Pain in limb 09249678 Active 2023 Salomejesus Gonzalezadolfo null, [facility] 4 15:16:15 Carpal tunnel syndrome of left wrist 8850423431511 02 [place] 2023 [place] [address] [place] [address], [address], [facility] 4 10:26:20 Arthritis of first carpometaca rpal joint of left hand 0940946152409 103 Active 2023 [place] [address] [place] [address], [address], [facility] 4 10:26:25 Tendinitis of left wrist region 1417621106388 9100 Active 2023 Tad Sanchez MD [address] [place], [address], [facility] 4 10:26:30 Pain of bilateral hands 1688967113234 [address] Active 2023 Wan soto, [facility] 4 11:13:00 Pain of left shoulder joint 6730385157813 [address]109 Active 2024 Wan soto, [facility] 5 09:40:31 Pain of left wrist 9368375263733 02 Active 2024 Wan soto, [facility] 5 09:47:14 Problem Notes None recorded. Procedures Surgical History Date Name Laterality Status Provider Name and Address Organization Details Recorded Time 02/06/20 24 arthroplasty of the carpometacarpal joint of the thumb completed Salomejesus Jeff [facility] 02/09/2024 09:02:18 02/06/20 24 decompression of left median nerve completed Salomejesus Jeff [facility] 02/09/2024 09:02:49 03/31/19 13 [facility] 07/16/2023 15:17:08 03/31/18 99 procedure on toenail completed Salome Jeff [facility] 07/16/2023 15:17:27 03/31/18 98 decompression of ulnar nerve completed [facility] 07/16/2023 15:18:05 Imaging Results Imaging Date Name Status LastModified by Organiz ation Details LastModified Time 07/16/2023 XR, hand, 3 or more view completed [facility] [address] [place], [address], 07/29/2023 10:08:36 02/06/2024 sp fluoro [address] [facility] [address] , [place], [address], 02/09/2024 08:54:12 03/18/2024 XR, hand, 3 or more view completed [facility] [address] [place], [address], 03/19/2024 12:15:24 Procedure Notes None recorded. Medical Equipment None Reported. Allergies Allergen ID Allergen Name Allergen Category Reaction Reaction Severity Criticality Documentation Date Start Date Code Code System Note Provider Name and Address Organization Details Recorded Time 075101 Bactrim medicatio n rash Not available Not available 07/16/2023 80986 9 RxNorm Salome Carlosadolfo [facility] 15:08:53 Medications Name Sig Start Date Stop Date Status Note LastModified by Organization Details LastModified Time tizanidin e 4 mg tablet TAKE 1 TABLET BY MOUTH EVERY 8 HOURS NEEDED active Not Available Not Available No t Available fluconazo le 150 mg tablet TAKE ONE TABLET BY MOUTH A ONE-TIME DOSE MAY REPEAT IN 72 HOURS IF NEEDED active Not Available Not Available No t Available meloxicam 15 mg tablet Take 1 tablet every day by oral route. active Not Available Not Available No t Available Medrol (Alexi) 4 mg tablets in a dose pack Take 1 dose pk by oral route. 02/08 completed Not Available Not Available Not Available prednison e 20 mg tablet TAKE 1 TABLET BY MOUTH IN THE MORNING FOR 5 DAYS 03/02 completed Not Available Not Available Not Available naproxen 250 mg tablet Take 1 tablet twice a day by oral route. active Not Available Not Available No t Available phentermi ne 15 mg capsule Take 1 capsule every day by oral route. active Not Available Not Available No t Available omeprazol e 40 mg capsule,d elayed release TAKE 1 CAPSULE BY MOUTH ONCE DAILY active Not Available Not Available No t Available triamcino lone acetonide 0.1 % topical cream APPLY CREAM EXTERNAL LY TO AFFECTED AREA TWICE DAILY FOR 7 DAYS 03/02 completed Not Available Not Available Not Available Kenalog 40 mg/mL suspensio n for injection Take 1 mL by injectio n route. 05/03 completed 1ml Kenalog 40mg/ml with 1ml 1% lidocain e injected into left wrist Not Available Not Available Not Available hydrocodo ne 7.5 mg-acetam inophen 325 mg tablet TAKE 1 TABLET BY MOUTH EVERY 6 HOURS NEEDED FOR PAIN (MODERAT E PAIN 4-6) 04/06 completed Not Available Not Available Not Available triamcino lone acetonide 0.1 % topical ointment APPLY OINTMENT TOPICALL Y TO SPOTS TWICE DAILY NEEDED active Not Available Not Available No t Available sertralin e 25 mg tablet TAKE 1 TABLET BY MOUTH ONCE DAILY active Not Available Not Available No t Available hydroxyzi ne HCl 10 mg tablet TAKE 1 TABLET BY MOUTH THREE TIMES DAILY NEEDED FOR ITCHING active Not Available Not Available No t Available ondansetr on HCl active Not Available Not Available Not Available phenazopy ridine active Not Available Not Available Not Available Symbicort 160 mcg-4.5 mcg/actua tion HFA aerosol inhaler Inhale 2 puffs twice a day by inhalati on route. active Not Available Not Available No t Available Breo Ellipta 200 mcg-25 mcg/dose powder for inhalatio n Inhale 1 puff every day by inhalati on route. active Not Available Not Available No t Available Vitals Date Recorded Body height Body mass index (BMI) Body weight Heart rate Oxygen saturation Oxygen saturation in Arterial blood by Pulse oximetry Systolic blood pressure Diastolic blood pressure Provider Name and Address Organization Details Last Updated DateTime 4 162.56 cm 28.8 kg/m2 98161.5 2 g 82 /min 98 % 98 % 108 mm[Hg] 86 mm[Hg] [facility] 4 09:50:43 Date Recorded Body height Body mass index (BMI) Body weight Oxygen saturation Oxygen saturation in Arterial blood by Pulse oximetry Heart rate Systolic blood pressure Diastolic blood pressure Provider Name and Address Organization Details Last Updated DateTime 4 162.56 cm 28.8 kg/m2 85318.5 2 g 98 % 98 % 78 /min 117 mm[Hg] 84 mm[Hg] [facility] 4 09:43:07 Date Recorded Body height Body mass index (BMI) Body weight Heart rate Oxygen saturation Oxygen saturation in Arterial blood by Pulse oximetry Systolic blood pressure Diastolic blood pressure Provider Name and Address Organization Details Last Updated DateTime 4 162.56 cm 26.9 kg/m2 99013 g 88 /min 95 % 95 % 121 mm[Hg] 79 mm[Hg] Salome Jeff [facility] 4 10:58:54 Date Recorded Body height Body mass index (BMI) Body weight Heart rate Oxygen saturation Oxygen saturation in Arterial blood by Pulse oximetry Systolic blood pressure Diastolic blood pressure Provider Name and Address Organization Details Last Updated DateTime 5 162.56 cm 27.1 kg/m2 53294.5 9 g 73 /min 98 % 98 % 111 mm[Hg] 88 mm[Hg] Salome Jeff [facility] 5 09:28:59 Social History Question Answer Notes LastModified by Organizat ion Details LastModified Time Tobacco Smoking Status Never Smoker Salome Jeff [facility] 07/24/2023 09:51:40 What Is Your Level Of Alcohol Consumption? Occasional Information not available 07/24/2023 What Is Your Level Of Caffeine Consumption? None Information not available 07/24/2023 Do You Feel Hopeless Or Helpless No Information not available 07/24/2023 Have You Had Thoughts Of Suicide? No Information not available 07/24/2023 Are You Having Any Suicidal Thoughts Now? No Information not available 07/24/2023 Have You Previously Attempted Suicide? No Information not available 07/24/2023 Do You Have A Plan To Hurt Yourself Or Others? No Information not available 07/24/2023 Has A Family Member Or Someone Close To You Committed Suicide Or Have You Been A Witness To Suicide? No Information not available 07/24/2023 Have You Fallen In The Last 3 Months? No Information not available 07/24/2023 What Was The Date Of Your Most Recent Tobacco Screening? 04/15/2024 Information not available 04/06/2024 Do You Use Any Illicit Or Recreational Drugs? No Information not available 07/24/2023 Has Tobacco Cessation Counseling Been Provided? No Information not available 02/09/2024 Do You Or Have You Ever Used Any Other Forms Of Tobacco Or Nicotine? No Information not available 02/09/2024 Sex: Unknown Functional Status None recorded. Mental Status None recorded. Family History Relationship Description Onset Age of this Age Resolved Age Notes LastModified by Organization Details LastModified Time Father Diabetes mellitus rhanegan Not available 2023 15:18:47 Father Family history of malignant neoplasm rhanegan Not available 2023 15:19:07 Mother Hypertensive disorder rhanegan Not available 2023 15:19:26 Medical History Condition Response BLINDNESS N KIDNEY STONES N MRSA N CARPAL TUNNEL SYNDROME Y LUNG DISEASE/DISORDER N COPD N RADIATION / CHEMOTHERAPY N SPORTS INJURY N ANKLE PAIN N BLOOD DISEASES N SCHIZOPHRENIA N SHINGLES N SHOULDER PAIN Y DEPRESSION (INCLUDING POST ) N BOWEL PROBLEMS N STROKE/TIA N KNEE PAIN N ULCERS N BENIGN PROSTATIC HYPERPLASIA N OBESITY N GERD/NAUSEA N ANEURYSM N URINARY/BLADDER/KIDNEY PROBLEMS Y CORONARY ARTERY DISEASE (CAD) N ADDICTION CONCERNS N USE OF BLOOD THINNERS N SKIN PROBLEMS N EMPHYSEMA N MUSCLE,JOINT OR BONE PROBLEMS N DVT N STOMACH ULCERS N BLOOD CLOTS N USE OF NSAIDS N NEUROPATHY N AIDS/HIV N FRACTURES Y HYPERTENSION N ELBOW PAIN N TOURETTE'S N Metal allergy N ANXIETY DISORDER N BLOOD TRANSFUSION N ANEMIA/BLOOD DISORDER N BIPOLAR DISORDER N BRONCHITIS Y OSTEOARTHRITIS N TUBERCULOSIS N FOOT PROBLEM N HEART VALVE DISORDERS N SOFT TISSUE INJURY N ALLERGIES/HAYFEVER Y INFECTIOUS DISEASE N HEART ARRHYTHMIA N INSOMNIA N RHEUMATOID ARTHRITIS N HIGH CHOLESTEROL / HYPERLIPIDEMIA Y EDEMA N CHRONIC PAIN SYNDROME N CONSTIPATION N CAROTID BLOCKAGE N BACK / NECK PROBLEMS N HAVE YOU BEEN HOSPITALIZED OR SEEN IN [facility] IN THE PAST YEAR ? N BURSITIS N HERNIATED DISC N DIALYSIS N FIBROMYALGIA N OSTEOPOROSIS N NO SIGNIFICANT PAST MEDICAL HISTORY N PERIPHERAL NEUROPATHY N DIABETES, TYPE N HEPATITIS / LIVER DISEASE N GOUT N SLEEP DISORDER N ALZHEIMER'S DISEASE N HERPES N SEIZURES/EPILEPSY N HEADACHES/MIGRAINES N VASCULAR DISEASE N HIP PAIN N Blood Disorder N DIZZINESS N HEAD TRAUMA OR INJURY N HEART DISEASE/HEART PROBLEMS N MULTIPLE SCLEROSIS N CARDIAC ARRHYTHMIA N CANCER: SPECIFY N ANESTHESIA COMPLICATIONS N ATRIAL FIBRILLATION N Gynecological HistoryNo gynecological history recorded. Obstetrics History GPAL:G 0 P 0 0 0 0 Past Encounters Encounter ID Performer Location Encounter Start Date Encounter Closed Date Diagnosis/Indication Diagnosis SNOMED-CT Code Diagnosis ICD10 Code Diagnosis Note [id number] Tad Sanchez MD [facility] [address] [place] [address] 07/24/2023 09:32:14 07/24/2023 10:54:45 Pain in left thumb 1882263948 665086 M79.645 Body mass index 25-29 - overweight 325391339 Z68.28 Carpal viktoria kathryn syndrome of left wrist 2852482380 30142 G56.02 we will schedule the patient for surgery of the left carpal tunnel having failed conservati ve treatment she understand s the risks benefits alternchani kevin wished to proceed Arthritis of first carpometacarpal joint of left hand 0191391650 103182 M13.842 schedule patient for left thumb CMC arthroplas ty failed conservati ve treatment understand s risks benefits nilda gave her a well fitted thumb spica brace Tendinitis of left wrist region 4188556382 6098326 M67.834 gave her a well fitted thumb spica brace for the ECU tendinitis of no improvemen t consider an injection of the tendon sheath [id number] Tad Sanchez MD [facility] [address] [place] [address] 02/19/2024 09:34:33 02/19/2024 10:24:58 Pain in left thumb 2627348602 185480 M79.645 Arthritis of first carpometacarpal joint of left hand 6350129876 621509 M13.842 remove sutures today and applied Steri-Stri ps. Put her in a customizab le thumb brace to protect her thumb. See her in a month for x-rays of the thumb out of the brace. She can use her fingers for gripping and lifting but do not pinch against the thumb Carpal viktoria kathryn syndrome of left wrist 1783113612 80701 G56.02 patient can do nerve and tendon glides for the carpal tunnel release and sensory re-educati on with hot and cold contrast and different textures and we will see her in a month for follow-up. Remove sutures today and applied Steri-Stri ps from the carpal tunnel release. Body mass index 25-29 - overweight 573081476 Z68.28 [id number] Tad Sanchez MD [facility] [address] [address] 03/18/2024 10:42:21 03/18/2024 11:16:35 Arthritis of first carpometacarpal joint of left hand 2022326234 190219 M13.842 patient will work on strengthen ing of the thumb we will see her in a few months for follow-up evaluation and x-rays of both thumbs. Carpal viktoria kathryn syndrome of left wrist 6293104130 99774 G56.02 Work on desensitiz ing of the palm with stress and load can continue to massage Vaseline into the scar once or twice a day. The sensitivit y should improve over time. Body mass index 25-29 - overweight 249872340 Z68.28 Pain of bi lateral hands 1785057494 9233007 M79.641 M79.458 [id number] Tad Sanchez MD [facility] [address] [address] 04/15/2024 09:14:50 04/15/2024 09:56:08 Arthritis of first carpometacarpal joint of left hand 5655388700 653820 M13.842 patient will work on strengthen ing of the thumb we will see her in a few months for follow-up evaluation and x-rays of both thumbs. injected the incision area where it is thickened over the palmar fascia with 1 cc of lidocaine 1 cc or 40 mg of Kenalog sterile technique standard protocol Body mass index 25-29 - overweight 763307060 Z68.28 Pain of le ft shoulder joint 7715616825 1920642 M25.512 referral to therapy to work on I onto and phono pheresis and some strengthen ing and stretching and deep friction massage over the cuff tendinopat hy. Pain of left wrist [address]374 [address]253 78789 M25.532 Health Concerns Section Related Observation LastModified by Organization Vidal crawford LastModified Time None Recorded Concern Status LastModified by Organization Details LastModified Time None Recorded Advance Directives Directive None Recorded Payers Encounter Date Sequence Insurance Name Policy Number Policy Webster Covered Member ID Webster Member ID Guarantor Name 07/24/2023 1 [employer] - OPEN ACCESS [id number] Shelbie Contreras [id number] 1 Shelbie Contreras 02/19/2024 1 [employer] - OPEN ACCESS [id number] Shelbie Contreras [id number] 1 Shelbie Contreras 03/18/2024 1 [employer] - OPEN ACCESS [id number] Shelbie Contreras [id number] 1 Shelbie Contreras 04/15/2024 1 [employer] - OPEN ACCESS [id number] Shelbie Contreras [id number] 1 Shelbie Contreras Notes Date Note Type Note Provider Name and Address Organization Details Recorded Time 07/24/2023 text/html patient is leida saxena painful left thumb arthritis and the numbing and tingling in her hand been bothering her now for a while. Patient did well after right carpal tunnel release and right thumb CMC arthroplasty. Also been having a little bit of ulnar-sided wrist pain that [place] [address] [place] [address], [address], [facility] 07/24/2023 10:27:25 02/19/2024 text/html patient had a CM C arthroplasty 02/06/2024 also carpal tunnel release comes in for follow-up of her left hand Tad Sanchez MD [address] [place], [address], [facility] 02/19/2024 11:00:52 03/18/2024 text/html patient is 6 wee ks postop carpal tunnel release and CMC arthroplasty. Little bit of pillar pain in the palm from the carpal tunnel release. No recurrence of the ECU tenosynovitis after the injection. aTd Sanchez MD [address] [place], [address], [facility] 03/18/2024 12:04:51 04/15/2024 text/html Patient has developed a little bit of scarring over her carpal tunnel incision comes in today for follow-up little bit of the area where release the fascia is a little sensitive her numbing and tingling is all gone away nicely her thumb function is good just a little sensitivity noted also little bit of sensitivity up in the left shoulder on that same extremity as well. Tad Sanchez MD [address] [place], [address], [facility] 04/15/2024 11:58:42 OBGyn Episode No OBEpisode recorded.
--- OUTSIDE RECORDS SUMMARY | 2024-05-13 18:03 | XMS_ITS | Encounter Summary ---
Author Organization [facility] Address [address] [place] [address] Care Team Providers Care Windshield Installer Name Role Phone Doreen Paulson MD Primary Care Provider + [phone] Khanh Dao MD Unavailable [phone] Marybel Bran APRN Primary Care Provider + [phone] Marsha Tam NP Primary Care Provider + [phone] Encounter Details Date Type Department Care Team (Late st Contact Info) Description 03/13/2021 MixGeniushart Message Enc [facility] [address] [place] [address] [place] [address] [place] [address] Appt I will be there Social History Tobacco Use Types Packs/Day Years Used Date Smoking Tobacco: Never Smokeless Tobacco: Never Alcohol Use Standard Drinks/Week Comments Yes 0 (1 standard drink = 0.6 oz pur e alcohol) occasional PHQ-2 Answer Date Recorded PHQ-2 Score - If the patient scores above 3, please move on to questions 3-9 0 11/02/2020 Comments No Sex and Gender Information Value Date Recorded Sex Assigned at Female 04/15/2024 10:15 AM REAL ESTATE LAWYER Legal Sex Female 4:19 PM CDT Gender Identity Female 05/14/2021 10:13 AM REAL ESTATE LAWYER Sexual Orientation Not on file Occupation Industry Job Start Date Job End Date Not on file Not on file Not on file Not on file COVID-19 Exposure Response Date Recorded In the last month, have you been in contact with someone who was confirmed or suspected to have Coronavirus / COVID-19? No / Unsure 02/23/2021 7:28 AM REAL ESTATE LAWYER documented as of this encounter Plan of Treatment Upcoming Encounters Date Type Department Care Team (Late st Contact Info) Description 05/19/2024 4:45 PM REAL ESTATE LAWYER Appointment [facility] [address] [place] [address] [place] [address] [place] [address] [place] [address] [address] 05/21/2024 4:30 PM REAL ESTATE LAWYER Appointment [facility] [address] [place] [address] [place] [address] [facility] [place] [address] [place] [address] [address] documented as of this encounter Visit Diagnoses Not on filedocumented in this encounter Additional Health Concerns Infection Onset Date Last Indicated Resolved Time COVID-19 Rule Out 03/11/2022 03/11/2022 03/11/2022 11:32 AM REAL ESTATE LAWYER COVID-19 Rule Out 05/11/2024 05/11/2024 05/11/2024 10:37 AM REAL ESTATE LAWYER Influenza - Seasonal 05/11/2024 05/11/2024 Assessment Noted Time PHQ-9 Depression Total Score: 0 11/03/19 2:53 PM CDT documented as of this encounter Care Teams Windshield Installer Relationship Specialty Start Date End Date Doreen Paulson MD PCP - General INTERNAL MEDICINE 10/25/17 10/21/22 Marybel Bran APRN [address] [place] [address] PCP - General 10/22/22 11/27/23 [place] [address] [address] PCP - General Nurse Practitioner Family 11/28/23 Khanh Dao MD Obdulia Evaluation Engineer INTERVENTIONAL CARDIOLOGY 10/30/17 documented as of this encounter
--- OUTSIDE RECORDS SUMMARY | 2024-05-13 18:03 | XMS_ITS | Clinical Summary ---
Author Organization [facility] Address [address] [place] [address] Care Team Providers Care Trimming Caser Name Role Phone Khanh Dao MD Unavailable [phone] Marsha Tam NP Primary Care Provider Allergies Active Allergy Reactions Criticality Noted Date Comments Sulfamethoxazole-Trimethoprim Rash Low 2017 Medications omeprazole 20 MG capsuleIndicati ons:Bronchitis Take 1 capsule (20 mg total) by mouth daily. 30 capsule 1 09/30/2019 Active vitamin D3, cholecalciferol , 1000 UNIT Tab tablet Take 1 tablet (25 mcg total) by mouth daily. Active fluconazole (DIFLUCAN) 150 MG tabletIndicatio ns:Acute cystitis without hematuria Take 1 tablet (150 mg total) by mouth daily. 4 tablet 5 05/20/2022 Active Bacillus Coagulans-Inuli n (PROBIOTIC) 1-250 BILLION-MG Cap Activ e sertraline (ZOLOFT) 25 MG tabletIndicatio ns:Depression screening,Gener alized anxiety disorder,Primar y insomnia Take 1 tablet (25 mg total) by mouth daily. 30 tablet 2 12/03/2023 Active fluticasone propionate (FLONASE) 50 MCG/ACT nasal spray Active levocetirizine (XYZAL) 5 MG tablet Take 1 tablet (5 mg total) by mouth. Active benzonatate (TESSALON PERLES) 100 MG capsuleIndicati ons:Influenza A Take 1 capsule (100 mg total) by mouth 3 (three) times daily as needed for Cough. 20 capsule 05/11/2024 5 Active oseltamivir (TAMIFLU) 75 MG capsuleIndicati ons:Influenza A Take 1 capsule (75 mg total) by mouth 2 (two) times daily for 5 days. 10 capsule 05/11/2024 5 Active albuterol sulfate HFA 108 (90 Base) MCG/ACT inhalerIndicati ons:Influenza A Inhale 2 puffs into the lungs every 6 (six) hours as needed. 18 g 05/11/2024 Active Active Problems Problem Noted Date Diagnosed Date Pain in left shoulder 05/03/2024 S/P carpal tunnel release 05/03/2024 Thoracic back pain 01/31/2023 Lumbar pain 01/31/2023 H/O laminectomy 01/31/2023 Carpal tunnel syndrome 01/21/2023 [id number] syndrome manif esting as chronic concentration deficit 02/07/2022 Disorder of shoulder 02/23/2021 Lesion of ulnar nerve 02/23/2021 Neck pain 02/23/2021 Tibialis tendinitis 02/23/2021 Esophageal stricture 05/21/2019 Frequency of urination 05/21/2019 Carpal tunnel syndrome, bilateral 03/22/2018 Arthritis of carpometacarpal (CMC) joint of both thumbs 03/20/2018 Vaginal atrophy 07/08/2016 Resolved Problems Problem Noted Date Diagnosed Date Resolved Date Enthesopathy of hip region 02/23/2021 0 12/03/2023 Medial epicondylitis 02/23/2021 024 Coccydynia 12/06/2020 12/03/2023 Shortness of breath 11/05/2019 12/03/19 24 Epigastric pain 05/21/2019 04/13/2021 Anemia, unspecified type 11/18/201706/2023 DVT (deep venous thrombosis) ([facility]) 12/03/2023 Encounters Date Type Department Care Team Description 05/11/2024 10:15 AM SWITCHBOX ASSEMBLER Office Visit [facility] Family & Internal Medicine [address] [address] Lana Hernandez, [place] Fever (Headache, cough, sob, ears hurting, drainage, body aches-x2 days) 05/11/2024 Telephone [facility] Family & Internal Medicine - [place] [address] [place] [address] Marsha Tam NP Medication Problem 05/11/2024 Travel 05/06/2024 4:57 PM SWITCHBOX ASSEMBLER - 05/06/2024 11:59 PM SWITCHBOX ASSEMBLER Hospital Encounter [facility] [address] [place] [address] Yakelin Paula, PT Marsha Tam, CEMENT GRINDING MILL OPERATOR [place], CLAIMS CLERK Shoulder Pain Discharge Disposition: Home or Self Care (Routine Discharge) 05/06/2024 Travel 05/03/2024 4:28 PM SWITCHBOX ASSEMBLER - 05/03/2024 11:59 PM SWITCHBOX ASSEMBLER Hospital Encounter [facility] [address] [place] [address] Yakelin Paula, PT El Sanchez MD Shoulder Pain; Wrist Pain Discharge Disposition: Home or Self Care (Routine Discharge) 05/03/2024 Travel from Last 3 Months Immunizations Name Administration Dates Next Due Fluzone 6 Months+ Quad (0.5 mL Prefilled Syringe) 12/23/2018 Influenza (Generic) 02/02/2020, 9,12/21/2014, 012 Influenza Adult (Generic) 02/05/2022,,02/02/2020, 019,12/21/2014 PFIZER COVID-19 (ORIGINAL FORMULATION, PURPLE CAP) mRNA, LNP-S, PF, 30 MCG/0.3 ML DOSE 07/20/2020,06/26/2020 Shingrix 04/12/2019,12/22/2018 Tdap (Adacel) 12/22/2018,08/29/2013 Tdap (Generic) 12/22/2018,08/29/2013 Family History Medical History Relation Comments Cancer Father No Known Problems Maternal Aunt No Known Problems Maternal Grandfather No Known Problems Maternal Grandmother No Known Problems Maternal Uncle No Known Problems Mother No Known Problems Paternal Aunt No Known Problems Paternal Grandfather No Known Problems Paternal Grandmother No Known Problems Paternal Uncle Breast Cancer Neg Hx Relation Status Comments Father (Age 72) Maternal Aunt Maternal Grandfather Maternal Grandmother Maternal Uncle Mother Alive Paternal Aunt Paternal Grandfather Paternal Grandmother Paternal Uncle Social History Tobacco Use Types Packs/Day Years Used Date Smoking Tobacco: Never Passive Smoke Exposure: Never Smokeless Tobacco: Never Tobacco Cessation:Counseling Given: No Alcohol Use Standard Drinks/Week Comments Yes 0 (1 standard drink = 0.6 oz pur e alcohol) occasional PHQ-2 Answer Date Recorded Patient Health Questionnaire-2 Score 0 05/11/2024 Comments No Sex and Gender Information Value Date Recorded Sex Assigned at Female 04/15/2024 10:15 AM SWITCHBOX ASSEMBLER Legal Sex Female 4:19 PM CDT Gender Identity Female 05/14/2021 10:13 AM SWITCHBOX ASSEMBLER Sexual Orientation Not on file Occupation Industry Job Start Date Job End Date Not on file Not on file Not on file Not on file Last Filed Vital Signs Vital Sign Reading Time Taken Comments Blood Pressure 80/61 05/11/2024 10:14 AM SWITCHBOX ASSEMBLER Pulse 100 05/11/2024 10:14 AM SWITCHBOX ASSEMBLER Temperature 36.6 C (97.9 F) 05/11/2024 10:14 AM SWITCHBOX ASSEMBLER Respiratory Rate 20 05/11/2024 10:14 AM SWITCHBOX ASSEMBLER Oxygen Saturation 96% 05/11/2024 10:14 AM SWITCHBOX ASSEMBLER Inhaled Oxygen Concentration - - Weight 71.2 kg (157 lb) 05/11/2024 10:14 AM SWITCHBOX ASSEMBLER Height 163.8 cm (5' 4.5 ) 05/11/2024 10:14 AM CS T Body Mass Index 26.53 05/11/2024 10:14 AM SWITCHBOX ASSEMBLER Plan of Treatment Upcoming Encounters Date Type Department Care Team (Late st Contact Info) Description 05/19/2024 4:45 PM SWITCHBOX ASSEMBLER Appointment [facility] [address] [place] [id number] [place] [address] [address] [place], [place] [id number] Marsha Tam, CEMENT GRINDING MILL OPERATOR [address] [place] [address] 05/21/2024 4:30 PM SWITCHBOX ASSEMBLER Appointment [facility] [address] [place] [place] [id number] [place] [address] [facility] [place] [id number] Marsha Tam, CEMENT GRINDING MILL OPERATOR [address] [facility] [address] [address] [place], [place] [id number] Health Maintenance Due Date Last Done Comments Annual Physical 06/27/1968 Influenza Adult (#1) 2023 02/05/2022, 01/23/2021, 02/02/2020, Additional history exists COVID-19 Vaccine ( season) 2024 07/20/2020, 06/26/2020 Postponed from 11/30/2023 (Patient Refused) Colorectal Cancer Screening Colonoscopy (10 Years) 02/08/2025 02/08/2015 Mammogram Screening 12/17/2025 12/18/2023, DTaP, Tdap and Td Vaccines (5 - Td or Tdap) 12/22/2028 12/22/2018, 12/22/2018, 08/29/2013, Additional history exists RSV Immunization or 60+ Years (1 - 1-dose 75+ series) 06/27/2038 Zoster Vaccines Completed 04/12/2019, 12/22/2018 Hepatitis C Completed 08/20/2023, 05/21/2019 PHQ-2 (Physician [place]) Completed 05/11/2024 Meningococcal B Vaccine Aged Out No l onger eligible based on patient's age to complete this topic Meningococcal Vaccine Aged Out No lyric nafisa eligible based on patient's age to complete this topic Pneumococcal Vaccine: Pediatrics (0 to 5 Years) and At-Risk Patients (6 to 64 Years) Aged Out No longer eligible based on patient's age to complete this topic RSV Immunizations Under 20 Months Aged Out No longer eligible based on patient's age to complete this topic Procedures Procedure Name Priority Date/Time Associated Diagnosis Comments CORONAVIRUS (COVID-19) INFLUENZA A & B ANTIGEN IA PANEL Routine 05/11/2024 Suspected COVID-19 virus infection MG SCREENING W TAMEKA PERLA DIGI Routine 12/18/2023 8:43 AM CDT Visit for screening mammogram HEP C SCANNED ORDERS Routine 08/20/2023 COLONOSCOPY GENERIC (SCAN ORDER) Routine 02/08/2015 from Last 3 Months or Most Recently Relevant to Health Maintenance Results * (ABNORMAL) CORONAVIRUS (COVID-19) INFLUENZA A & B ANTIGEN IA PANEL (05/11/2024) CORONAVIRUS ANTIGEN IA NEGATIVE NEGATIVE [id number], [place] INFLUENZA A POSITIVE(A) NEGATIVE MG-[address], [place] INFLUENZA B NEGATIVE NEGATIVE [id number], [place] Internal Control: VALID VALID -[id number], [place] NASAL STRUCTURE / Unknown 05/11/2024 us Lana AL MICROBIOLOGY - GENERAL ORDER BUD Final Result -[id number], [place] [address] [place] [address], [place] [phone] * MG SCREENING W TAMEKA PERLA DIGI (12/18/2023 8:43 AM CDT) Anatomical Region Laterality Modality Breast Bilateral Mammography 12/18/2023 9:14 AM CDT Impressions 12/18/2023 9:31 AM CDT ===== IMPRESSION: ===== 1. Stable mammographic appearance with no new findings to suggest malignancy in either breast. Assessment: ACR BI-RADS 2 - BENIGN FINDING(S) Recommendation: 1:Routine Screening Bilateral Comments: Ordered By: BEBO GAN Interpreted By: Sangeeta Salguero, 12/18/2023 9:14 AM Narrative 12/18/2023 9:31 AM CDT [facility] [address] [place] [address] EXAMINATION: Digital bilateral screening mammogram with 3-D tomosynthesis EXAM DATE/TIME: 12/18/2023 7:58 AM REASON FOR EXAM: YEARLY EXAM 09/27/2021.. November 12, 2017. Left breast of 06/01/2020 COMPARISON: 09/27/2021. November 12, 2017. Left diagnostic of 06/01/2020 Technique: Digital screening mammography of both breasts was performed in addition to 3-D Tomosynthesis technique. This study was read with the assistance of a computer-aided detection system. Tissue density: There are scattered areas of fibroglandular density. Findings: There is no new focal asymmetry, dominant mass lesion, area of skin thickening, or cluster of suspicious appearing calcifications in either breast to suggest malignancy. Interval slight increase in size of well-defined nodule within the posterior 12:00 position of the left breast. Shown to be a cyst on outside ultrasound of 06/01/2020.. Interval development of benign appearing calcifications within this cyst. us Bebo Gan NP MAMMO Final Result * HEP C SCANNED ORDERS (08/20/2023) us Doc [facility] Scanned SCANNING Final Resu lt [facility] * COLONOSCOPY (02/08/2015) us Documents Scanned SCANNING Final Result [facility] from Last 3 Months or Most Recently Relevant to Health Maintenance Additional Health Concerns Infection Onset Date Last Indicated Influenza - Seasonal 05/11/2024 05/11/2024 [place] [address] [place] [address] Care Teams Trimming Caser Relationship Specialty [place] [address] [facility] [address]. [place] [id number] PCP - General Nurse Practitioner Family 11/28/23 Khanh Dao MD Obdulia Ophthalmic Nurse INTERVENTIONAL CARDIOLOGY 10/30/17
--- OUTSIDE RECORDS SUMMARY | 2024-05-13 18:03 | XMS_ITS | Encounter Summary ---
Author Organization [facility] Address [address] [place] [address] Care Team Providers Care Count Room Clerk Name Role Phone Khanh Dao MD Unavailable Marybel Bran APRN Primary Care Provider [phone] Marsha Tam NP Primary Care Provider [phone] Encounter Details Date Type Department Care Team (Late st Contact Info) Description 08/27/2023 Startup[employer]camp FinTech Message Enc [facility] Family & Internal Medicine [address] [address] [facility] Provider appointment request Social History Tobacco Use Types Packs/Day Years Used Date Smoking Tobacco: Never Smokeless Tobacco: Never Alcohol Use Standard Drinks/Week Comments Yes 0 (1 standard drink = 0.6 oz pur e alcohol) occasional PHQ-2 Answer Date Recorded Patient Health Questionnaire-2 Score 0 07/25/2022 Comments No Sex and Gender Information Value Date Recorded Sex Assigned at Female 04/15/2024 10:15 AM ACOUSTICAL TILE CARPENTERS SUPERVISOR Legal Sex Female 4:19 PM CDT Gender Identity Female 05/14/2021 10:13 AM ACOUSTICAL TILE CARPENTERS SUPERVISOR Sexual Orientation Not on file Occupation Industry Job Start Date Job End Date Not on file Not on file Not on file Not on file documented as of this encounter Plan of Treatment Upcoming Encounters Date Type Department Care Team (Late st Contact Info) Description 05/19/2024 4:45 PM ACOUSTICAL TILE CARPENTERS SUPERVISOR Appointment [facility] [address] [place] [address] [place] [address] [place] [address] [place] [address] [place] [address] 05/21/2024 4:30 PM ACOUSTICAL TILE CARPENTERS SUPERVISOR Appointment [facility] [address] [place] [address] [place] [address] [place] [address] [place] [address] [address] documented as of this encounter Visit Diagnoses Not on filedocumented in this encounter Additional Health Concerns Infection Onset Date Last Indicated Resolved Time COVID-19 Rule Out 05/11/2024 05/11/2024 05/11/2024 10:37 AM ACOUSTICAL TILE CARPENTERS SUPERVISOR Influenza - Seasonal 05/11/2024 05/11/2024 Assessment Noted Time PHQ-9 Depression Total Score: 0 05/20/19 23 11:02 AM ACOUSTICAL TILE CARPENTERS SUPERVISOR documented as of this encounter Care Teams Count Room Clerk Relationship Specialty Start Date End Date Marybel Bran APRN [address] [place] [address] PCP - General 10/22/22 11/27/23 [place] [address] [place] [address] PCP - General Nurse Practitioner Family 11/28/23 Khanh Dao MD Obdulia Pattern Designer INTERVENTIONAL CARDIOLOGY 10/30/17 documented as of this encounter
--- OUTSIDE RECORDS SUMMARY | 2024-05-13 18:03 | XMS_ITS | Encounter Summary ---
Author Organization [facility] Care Team Providers Care Surveying Technician Name Role Phone Doreen Paulson MD Primary Care Provider [phone] Encounter Details Date Type Department Care Team (Latest Contact Info) Description 07/11/2016 Orders Only [facility] CLINCONV ProviderMagali MD [address] [place] [address] Social History Tobacco Use Types Packs/Day Years Used Date Smoking Tobacco: Never Comments Unknown Sex and Gender Information Value Date Recorded Sex Assigned at Not on file Legal Sex Female 6:55 AM DIRECTOR RECREATION CENTER Gender Identity Female 01/21/2023 7:05 AM CDT Sexual Orientation Straight 01/21/2023 7: 05 AM CDT documented as of this encounter Plan of Treatment Not on file documented as of this encounter Procedures Procedure Name Priority Date/Time Associated Diagnosis Comments SCAN - LABS 08/02/2016 12:00 AM CDT documented in this encounter Results * SCAN - LABS (08/02/2016 12:00 AM CDT) Narrative 08/02/2016 12:00 AM CDT Ordered by an unspecified provider. Historical Provider Final Res ult documented in this encounter Visit Diagnoses Not on filedocumented in this encounter Care Teams Surveying Technician Relationship Specialty [place] [address] [place] [address] PCP - General Internal Medicine 03/12/18 documented as of this encounter
--- OUTSIDE RECORDS SUMMARY | 2024-05-13 18:03 | XMS_ITS | Clinical Summary ---
Author Organization [facility] Address Formerly [facility] [place] [address] Care Team Providers Care Dental Assistant Instructor Name Role Phone oDreen Paulson MD Primary Care Provider [phone] Allergies Active Allergy Reactions Criticality Noted Date Comments Sulfamethoxazole-Trimethoprim Medications guaiFENesin-cod eine (GUAITUSS AC) liquid 100-10 mg/5 mL TAKE 5 TO 10 ML BY MOUTH EVERY 6 HOURS NEEDED FOR COUGH Active dextroamphetami ne-amphetamine (ADDERALL) 20 mg tablet Take 1 tablet (20 mg total) by mouth daily 3 Active estradioL (ESTRACE) 0.01 % (0.1 mg/gram) vaginal cream INSERT 1 GRAM VAGINALLY THREE TIMES A WEEK 2 Active fluconazole (DIFLUCAN) 150 mg tablet Take 1 tablet (150 mg total) by mouth daily Active methylPREDNISol one (MEDROL DOSEPACK) 4 mg Dosepack TAKE BY MOUTH DIRECTED ON INSIDE OF PACKAGE 3 Active omeprazole (PriLOSEC) 40 mg capsule Take 1 capsule (40 mg total) by mouth daily Active tiZANidine (ZANAFLEX) 2 mg tablet Take one TID 45 tablet 3 Active Active Problems Problem Noted Date Diagnosed Date Carpal tunnel syndrome 01/21/2023 DVT (deep venous thrombosis) ([facility]) 3 Lateral epicondylitis 01/21/2023 Pain in the coccyx 09/04/2022 [id number] syndrome manif esting as chronic concentration deficit 02/07/2022 Disorder of shoulder 02/23/2021 Enthesopathy of hip region 02/23/2021 Lesion of ulnar nerve 02/23/2021 Neck pain 02/23/2021 Tibialis tendinitis 02/23/2021 Shortness of breath 11/05/2019 Esophageal stricture 05/21/2019 Frequency of urination 05/21/2019 Carpal tunnel syndrome, bilateral 03/22/2018 Arthritis of carpometacarpal (CMC) joint of both thumbs 03/20/2018 Anemia 11/18/2017 Vaginal atrophy 07/08/2016 Surgical History Surgery Date Site/Laterality Comments HYSTERECTOMY JOINT REPLACEMENT 2019 SPINE SURGERY 2004 Medical History Medical History Date Comments Personal history of other di seases of the musculoskeletal system and connective tissue History o f low back pain - (Added by TW Conv) GERD (gastroesophageal reflux disease) Arthritis Family History Medical History Relation Name Comments Arthritis Father Dad Cancer Father Dad Diabetes Father Dad Hypertension Mother Mom Diabetes Other 1 Diabetes Mellit us - (Added by TW Conv) Cancer Other 2 Cancer - (Added by TW Conv) Relation Name Status Comments Father Dad Mother Mom Alive Other 1 Other 2 Social History Tobacco Use Types Packs/Day Years Used Date Smoking Tobacco: Never Smokeless Tobacco: Never Tobacco Cessation:Counseling Given: Not Answered AUDIT-C Answer Date Recorded Q1: How often do you have a drink containing alc ohol? Monthly or less 01/21/2023 Q2: How many drinks containi ng alcohol do you have on a typical day when you are drinking? 1 or 2 01/21/2023 Q3: How often do you have si x or more drinks on one occasion? 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 Not on file Not on f ile Obstetrics History Last Filed Vital Signs Vital Sign Reading Time Taken Comments Blood Pressure 118/70 10/27/2017 5:30 PM CDT Pulse 0 05/29/2015 5:45 PM JIG BORE OPERATOR Temperature - - Respiratory Rate - - Oxygen Saturation - - Inhaled Oxygen Concentration - - Weight 69.9 kg (154 lb) 10/27/2017 5:30 PM CDT Height 163.8 cm (5' 4.5 ) 10/27/2017 5:30 PM CDT Body Mass Index 26.03 10/27/2017 5:30 PM CDT Plan of Treatment Health Maintenance Due Date Last Done Comments Breast Cancer Screening-Mammogram 1963 Colon Cancer Screening-Colonoscopy 1965 Depression Screening 1963 Hepatitis C Screening 1963 Hepatitis B Screening 06/27/1981 Regular Well Visit/Exam 18-64 06/27/1981 Covid-19 Vaccine ( season) 2023 07/20/2020, 06/26/2020 Influenza Vaccine (#1) 2023 2, 02/05/2022, 01/23/2021, Additional history exists DTaP/Tdap/Td Vaccine (3 - Td or Tdap) 12/22/2028 12/22/2018, 08/29/2013 Cervical Cancer Screening Discontinued 05/29/2015, 11/2013 Zoster Vaccine Completed 04/12/2019, 12/22/2018 Pneumococcal vaccine <65 Aged Out No longer eligible based on patient's age to complete this topic Procedures Procedure Name Priority Date/Time Associated Diagnosis Comments THINPREP FORMING PROCESS LINE WORKER PAP (IMAGE GUIDED) LIQUID-BASED PREP Routine 05/29/2015 7:17 PM JIG BORE OPERATOR from Last 3 Months or Most Recently Relevant to Health Maintenance Results * ThinPrep Gynecologic Pap Test (Image-guided), Liquid-based Preparation (05/29/2015 7:17 PM JIG BORE OPERATOR) CLINICAL INFORMATION [facility] HISTORICAL RESULTS Comment:Information not prov ided LMP: HYST [facility] HISTORICAL RESULTS PREV. PAP: [facility] HISTORICAL RESULTS Comment:2014 PREV. BX: [facility] HISTORICAL RESULTS Comment:INFORMATION NOT PROV IDED SOURCE: [facility] HISTORICAL RESULTS Comment:Vagina STATEMENT OF ADEQUACY: [facility] HISTORICAL RESULTS Comment:SATISFACTORY FOR JENNY LUATION INTERPRETATION/RESU LT: [facility] HIST[facility]ICAL RESULTS Comment:Negative for intraep ithelial lesion or malignancy. Atrophic pattern; predominantly parabasal cells COMMENT: [facility] HISTORICAL RESULTS Comment:This Pap test has be en evaluated with computer assisted technology. MEN'S LEATHER DRESS BELT MAKER: [facility] Comment:BAB, CT(ASCP) CT scr eening location: [place] [address] [place] [address] 05/29/2015 7:17 PM JIG BORE OPERATOR 06/03/2015 12:00 AM JIG BORE OPERATOR Narrative [facility] HISTORICAL RESULTS - 06/02/2015 11:39 PM JIG BORE OPERATOR 0 PERFORMING LAB: , [place] [address] [place] [address] Varun Vale MD Rigo Valentino MD LAB PATHOLOGY ORDERABLE S Final Result [facility] HISTORICAL RESULTS from Last 3 Months or Most Recently Relevant to Health Maintenance Insurance [email or web address] OPEN ACCESS [facility] INSURANCE Advance Directives For more information, please contact: [phone] Documents on File Type Date Recorded Patient Environmental Health Safety Manager Expl anation ADVANCE DIRECTIVE 01/14/2012 12:00 AM [facility] ER OF MODEL MAKER APPRENTICE FINANCIAL/MEDICAL Care Teams Dental Assistant Instructor Relationship Specialty [place] [address] [place] [address] PCP - General Internal Medicine 03/12/18
--- OUTSIDE RECORDS SUMMARY | 2024-05-13 18:03 | XMS_ITS | Referral Summary ---
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 02/07/2022 Disorder of shoulder 02/23/2021 Enthesopathy of hip region 02/23/2021 Lesion of ulnar nerve 02/23/2021 Neck pain 02/23/2021 Tibialis tendinitis 02/23/2021 Shortness of breath 11/05/2019 Esophageal stricture 05/21/2019 Frequency of urination 05/21/2019 Carpal tunnel syndrome, bilateral 03/22/2018 Arthritis of carpometacarpal (CMC) joint of both thumbs 03/20/2018 Anemia 11/18/2017 Vaginal atrophy 07/08/2016 Social History Tobacco Use Types Packs/Day Years [...] on file Legal Sex Female 6:55 AM PRODUCT BLENDING SUPERVISOR Gender Identity Female 01/21/2023 7:05 AM CDT Sexual Orientation Straight 01/21/2023 7: 05 AM CDT 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 Not on file Not on file Not on f ile Last Filed Vital Signs Vital Sign Reading Time Taken Comments Blood Pressure 118/70 10/27/2017 5:30 PM CDT Pulse 0 05/29/2015 5:45 PM PRODUCT BLENDING SUPERVISOR Temperature - - Respiratory Rate - - Oxygen Saturation - - Inhaled Oxygen Concentration - - Weight 69.9 kg (154 lb) 10/27/2017 5:30 PM CDT Height 163.8 cm (5' 4.5 ) 10/27/2017 5:30 PM CDT Body Mass Index 26.03 10/27/2017 5:30 PM CDT Plan of Treatment Not on file Procedures Procedure Name Priority Date/Time Associated Diagnosis Comments THINPREP AIRCRAFT ENGINE SPECIALIST PAP (IMAGE GUIDED) LIQUID-BASED PREP Routine 05/29/2015 7:17 PM PRODUCT BLENDING SUPERVISOR from Last 3 Months or Most Recently Relevant to Health Maintenance Results * ThinPrep Gynecologic Pap Test (Image-guided), Liquid-based Preparation (05/29/2015 7:17 PM PRODUCT BLENDING SUPERVISOR) CLINICAL INFORMATION [facility] HISTORICAL RESULTS Comment:Information not prov ided LMP: HYST [facility] HISTORICAL RESULTS PREV. PAP: [facility] HISTORICAL RESULTS Comment:2014 PREV. BX: [facility] HISTORICAL RESULTS Comment:INFORMATION NOT PROV IDED SOURCE: [facility]ISTORICAL RESULTS Comment:Vagina STATEMENT OF ADEQUACY: [facility] HISTORICAL RESULTS Comment:SATISFACTORY FOR JENNY LUATION INTERPRETATION/RESU LT: [facility] HISTORICAL RESULTS Comment:Negative for intraep ithelial lesion or malignancy. Atrophic pattern; predominantly parabasal cells COMMENT: [facility] HISTORICAL RESULTS Comment:This Pap test has be en evaluated with computer assisted technology. BIOINFORMATICS SPECIALIST: [facility] HISTORICAL RESULTS Comment:BAB, CT(ASCP) CT scr eening location: [place] [address] [address] [place] [address] 05/29/2015 7:17 PM PRODUCT BLENDING SUPERVISOR 06/03/2015 12:00 AM PRODUCT BLENDING SUPERVISOR Narrative [facility] HISTORICAL RESULTS - 06/02/2015 11:39 PM PRODUCT BLENDING SUPERVISOR 0 PERFORMING LAB: , [place] [address] [place] [address] Varun Vale MD Rigo Valentino MD LAB PATHOLOGY ORDERABLE S Final Result [facility] HISTORICAL RESULTS from Last 3 Months or Most Recently Relevant to Health Maintenance Insurance [place] [address] [employer] OPEN ACCESS Member Subscriber Plan / Payer (Ef fective 2013-Present) Name:Shelbie Contreras Relation to Subscriber:Self Name:Shelbie Contreras Payer ID:[id number] Group ID:[id number] Type:[employer] HMO/PPO Address: [address] Advance Directives For more information, please contact: [phone] Documents on File Type Date Recorded Patient Rn First Assist Expl anation ADVANCE DIRECTIVE 01/14/2012 12:00 AM [facility] OF AUTOMOTIVE PAINT TECHNICIAN FINANCIAL/MEDICAL Care Teams Piston Maker Relationship Specialty [place] [address] [address] [facility] [address] [place] [address] PCP - General Internal Medicine 03/12/18
--- OUTSIDE RECORDS SUMMARY | 2024-05-13 18:03 | XMS_ITS | Encounter Summary ---
Author Organization [facility] Address [address] [place] [address] Care Team Providers Care Allied Health Instructor Name Role Phone Doreen Paulson MD Primary Care Provider [phone] Khanh aDo MD Unavailable [phone] Marybel Bran APRN Primary Care Provider + [phone] Marsha Tam NP Primary Care Provider [phone] Encounter Details Date Type Department Care Team (Late st Contact Info) Description 03/13/2021 iikohart Message Enc [facility] [address] [place] [address] [place] [address] [place] [address] My appt Social History Tobacco Use Types Packs/Day Years [...] Sex Assigned at Female 04/15/2024 10:15 AM PRECAST CONCRETE IRONWORKER Legal Sex Female 4:19 PM CDT Gender Identity Female 05/14/2021 10:13 AM PRECAST CONCRETE IRONWORKER Sexual Orientation Not on file Occupation Industry Job Start Date Job End Date Not on file Not on file Not on file Not on file COVID-19 Exposure Response Date Recorded In the last month, have you been in contact with someone who was confirmed or suspected to have Coronavirus / COVID-19? No / Unsure 02/23/2021 7:28 AM PRECAST CONCRETE IRONWORKER documented as of this encounter Plan of Treatment Upcoming Encounters Date Type Department Care Team (Late st Contact Info) Description 05/19/2024 4:45 PM PRECAST CONCRETE IRONWORKER Appointment [facility] [address] [place] [address] [place] [address] [place] [address] [place] [address] [place] [address] 05/21/2024 4:30 PM PRECAST CONCRETE IRONWORKER Appointment [facility] [address] [place] [address] [place] [address] [facility] [place] [address] [place] [address] [facility] [place] [address] documented as of this encounter Visit Diagnoses Not on filedocumented in this encounter Additional Health Concerns Infection Onset Date Last Indicated Resolved Time COVID-19 Rule Out 03/11/2022 03/11/2022 03/11/2022 11:32 AM PRECAST CONCRETE IRONWORKER COVID-19 Rule Out 05/11/2024 05/11/2024 05/11/2024 10:37 AM PRECAST CONCRETE IRONWORKER Influenza - Seasonal 05/11/2024 05/11/2024 Assessment Noted Time PHQ-9 Depression Total Score: 0 11/03/19 2:53 PM CDT documented as of this encounter Care Teams Allied Health Instructor Relationship Specialty Start Date End Date Doreen Paulson MD PCP - General INTERNAL MEDICINE 10/25/17 10/21/22 Marybel Bran APRN [address] [place], [place] [id number] PCP - General 10/22/22 11/27/23 [place] [address] [place] [address] PCP - General Nurse Practitioner Family 11/28/23 Khanh Dao MD Obdulia Diploma Dental Assistant INTERVENTIONAL CARDIOLOGY 10/30/17 documented as of this encounter
[2024-05-13 18:08] VITALS: BP 114/72; PULSE 83; RESP 18; TEMP 36.5; O2SAT 98
[2024-05-13 18:20] VITALS: PULSE 90; RESP 20; O2SAT 98
[2024-05-13] MEDS: IPRATROPIUM 0.5 MG/ALBUTEROL SULFATE 2.5 MG AMPUL.NEB 3 ML INHALATION (18:20)
[2024-05-13 18:30] VITALS: PULSE 112; RESP 22; O2SAT 96
== END 2024-05-13 18:36 | disposition home or self-care (01) ==
PROVIDERS: Emergency Provider Nurse Practitioner Family; PCP Nurse Practitioner Family
DX: J10.1 Influenza due to other identified influenza virus with other respiratory manifestations (principal); J40 Bronchitis, not specified as acute or chronic; I10 Essential (primary) hypertension
CPT/HCPCS: 71046; 99213; G0463